=== PATIENT | male | born 1960 | race Caucasian/White ===

== ENCOUNTER 2018-11-02 14:17 | Inpatient (IN) | payer MEDICARE, MEDICAID ==
[~2018-11-02] VITALS: Ht 180.3 cm; Wt 75.0 kg
[2018-11-02 17:06] LABS: BASOPHILS 0.2 % (0-2); EOSINOPHILS 0.1 % (0-7); HEMATOCRIT 50.7 % (42.0-54.0); HEMOGLOBIN 17.9 g/dL (13.5-17.5); IMMATURE GRANULOCYTES 0.3 % (0-5); LYMPHOCYTES 7.6 % (15-50); MCH 32.4 pg (26.0-34.0); MCHC 35.3 g/dL (31.0-37.0); MCV 91.8 fL (80.0-100.0); MEAN PLATELET VOLUME 10.1 fL (7.4-10.4); MONOCYTES 6.1 % (2-11); NEUTROPHILS 85.7 % (40-80); PLATELET COUNT 353 10x3/uL (130-400); RBC 5.52 10x6/uL (4.20-6.10); RDW 13.7 % (11.5-14.5); WBC 19.8 10x3/uL (4.8-10.8)
[2018-11-02 17:26] LABS: ALBUMIN 3.2 g/dL (3.4-5.0); ALKALINE PHOSPHATASE 81 U/L (46-116); ALT (SGPT) 14 U/L (10-68); BILIRUBIN - TOTAL 0.62 mg/dL (0.2-1.3); CALC OSMOLALITY 275 mosm/kg (275-300); CALCIUM 9.1 mg/dL (8.5-10.1); CARBON DIOXIDE 27.3 mmol/L (21.0-32.0); CHLORIDE - SERUM 98 mmol/L (98-107); GLUCOSE 131 mg/dL (74-106); POTASSIUM - SERUM 3.8 mmol/L (3.5-5.1); PROTEIN - SERUM 8.4 g/dL (6.4-8.2); SODIUM 136 mmol/L (136-145); UREA NITROGEN 18 mg/dL (7-18); eGFR NON AFRICAN AMERICAN 81 mL/min (90-120)
[2018-11-02 19:00] VITALS: BP 109/80
[2018-11-02 19:33] LABS: APPEARANCE CLEAR (CLEAR); COLOR YELLOW (YELLOW); GLUCOSE NEGATIVE (NEGATIVE); NITRITE NEGATIVE (NEGATIVE); PROTEIN TRACE mg/dL (NEGATIVE); SPECIFIC GRAVITY 1.015 (1.005-1.020)
[2018-11-02 19:34] LABS: BILIRUBIN NEGATIVE (NEGATIVE); KETONE NEGATIVE (NEGATIVE)
--- NOTE | 2018-11-02 20:43 | NUR ---
PT LAYING IN BED RESTING WITH EYES CLOSED. EASILY AROUSED WITH VERBAL STIMULI. PT REPORTS PAIN IS 8/10. NO DISTRESS NOTED AT THIS TIME. COLOR WNL FOR RACE. RESPIRATIONS ARE EVEN AND UNLABORED. WILL CONTINUE TO MONITOR PAT.
[2018-11-02 21:06] VITALS: BP 150/73
--- NOTE | 2018-11-03 | NUR ---
ARRIVED ON FLOOR VIA STRETCHER. SELF BED TO BED TRANSFER. ORIENTED TO ROOM AND CALL LIGHT. FAMILY AT BEDSIDE. INC TO RIGHT GROIN CDI. INITIATED ON CONT VITALS. IV TO LEFT HAND INFUSING NS @ 125 PER ORDER. NO NEEDS VOICED AT THIS TIME.
[2018-11-03 00:04] VITALS: BP 116/67
[2018-11-03 00:15] VITALS: Ht 180.3 cm; Wt 75.0 kg
[2018-11-03 04:00] VITALS: BP 125/70
--- NOTE | 2018-11-03 07:58 | NUR ---
PT ALERT X 4. BREATH SOUNDS CLEAR BILAT, 2L O2 PER NC. BOWEL SOUNDS HYPOACTIVE TO ALL MELENDEZ. IV TO LEFT HAND, PATENT, DRESSING CLEAN DRY AND INTACT. DRESSING TO RIGHT GROIN AREA, DRESSING CLEAN DRY AND INTACT. FAMILY AT BEDSIDE. BED LOW, CALL LIGHT IN REACH, NO OTHER NEEDS AT THIS TIME.
[2018-11-03 08:42] VITALS: BP 121/75
[2018-11-03 08:46] LABS: BASOPHILS 0.1 % (0-2); EOSINOPHILS 0.1 % (0-7); HEMATOCRIT 48.8 % (42.0-54.0); IMMATURE GRANULOCYTES 0.3 % (0-5); LYMPHOCYTES 5.6 % (15-50); MCH 32.5 pg (26.0-34.0); MCHC 34.8 g/dL (31.0-37.0); MCV 93.3 fL (80.0-100.0); MEAN PLATELET VOLUME 10.2 fL (7.4-10.4); MONOCYTES 6.5 % (2-11); NEUTROPHILS 87.4 % (40-80); PLATELET COUNT 290 10x3/uL (130-400); RBC 5.23 10x6/uL (4.20-6.10); RDW 14.1 % (11.5-14.5)
[2018-11-03 08:51] LABS: WBC 14.2 10x3/uL (4.8-10.8)
[2018-11-03 08:57] LABS: ANION GAP 16.4 mmol/L (8-16); CALCIUM 7.9 mg/dL (8.5-10.1); CARBON DIOXIDE 23.6 mmol/L (21.0-32.0); CREATININE - SERUM 1.1 mg/dL (0.6-1.3)
[2018-11-03] MEDS ORDERED: HYDROCODON-ACE1 EA10 PO (10:56)
[2018-11-03 13:36] VITALS: BP 102/62; BP 177/58
[2018-11-03 17:42] VITALS: BP 128/75
[2018-11-03 21:20] VITALS: BP 127/70
[2018-11-04 02:06] VITALS: BP 119/71
--- NOTE | 2018-11-04 03:52 | NUR ---
RESTING QUITELY IN BED NO APPARENT DISTRESS CALL SABA JARA
[2018-11-04 04:02] LABS: BASOPHILS 0.1 % (0-2); EOSINOPHILS 0 % (0-7); HEMATOCRIT 43.3 % (42.0-54.0); HEMOGLOBIN 14.8 g/dL (13.5-17.5); IMMATURE GRANULOCYTES 0.2 % (0-5); LYMPHOCYTES 8.7 % (15-50); MCH 32.1 pg (26.0-34.0); MCHC 34.2 g/dL (31.0-37.0); MCV 93.9 fL (80.0-100.0); MEAN PLATELET VOLUME 10.1 fL (7.4-10.4); MONOCYTES 8.5 % (2-11); NEUTROPHILS 82.5 % (40-80); PLATELET COUNT 266 10x3/uL (130-400); RBC 4.61 10x6/uL (4.20-6.10); RDW 14.1 % (11.5-14.5); WBC 12.4 10x3/uL (4.8-10.8)
[2018-11-04 04:17] LABS: CALC OSMOLALITY 270 mosm/kg (275-300); CALCIUM 7.9 mg/dL (8.5-10.1); CHLORIDE - SERUM 100 mmol/L (98-107); GLUCOSE 100 mg/dL (74-106); POTASSIUM - SERUM 3.8 mmol/L (3.5-5.1); SODIUM 135 mmol/L (136-145); UREA NITROGEN 15 mg/dL (7-18); eGFR NON AFRICAN AMERICAN 81 mL/min (90-120)
[2018-11-04 06:00] VITALS: BP 130/72
--- NOTE | 2018-11-04 07:25 | NUR ---
C/O NAUSEA. REQUESTED AND GIVEN 4MG ZOFRAN SLOW IVP. WILL MONITOR.
--- NOTE | 2018-11-04 08:14 | NUR ---
AWAKE AND ALERT. RESTING QUIETLY AT THIS TIME. NO C/O VOICED. LUNGS ARE CLEAR BILATERALLY, NO COUGH NOTED. SKIN IS INTACT WITHOUT REDNESS EXCEPT INCISION TO RIGHT GROIN WHICH HAS A DRY INTACT DRESSING IN PLACE. IV TO LEFT HAND IS PATENT WITHOUT REDNESS AT INSERTION SITE. DENIES NEEDS.
[2018-11-04 08:45] VITALS: BP 132/71
--- NOTE | 2018-11-04 10:00 | NUR ---
OFF UNIT VIA FOR EXRAY.
--- NOTE | 2018-11-04 11:45 | NUR ---
RETURNED TO ROOM. WILL RESPOND TO QUESTIONS BUT NOT VERY TALKATIVE. DENIES NEEDS.
[2018-11-04 13:28] VITALS: BP 121/79
--- NOTE | 2018-11-04 13:40 | NUR ---
GIVEN 4MG ZOFRAN SLOW IVP FOR C/O NAUSEA.. IV TO LEFT HAND NOTED TO BE LEAKING. RESITED TO LEFT FOREARM AFTER ONE ATTEMPT WITH 20G. ZOFRAN GIVEN AGAIN NO RELIEF FROM NAUSEA. WILL CONTINUE TO MONITOR.
--- NOTE | 2018-11-04 14:50 | NUR ---
PATIENT HAD OVER 700CC GREENISH EMESIS WITH FEW PARTICULATES. DR. SOMMER NOTIFIED OF SAME. NEW ORDERS FOR PHENERGAN RECEIVED. WILL MONITOR.
[2018-11-04 16:00] VITALS: BP 123/75
--- NOTE | 2018-11-04 17:00 | NUR ---
CL SUPPER TRAY SERVED IN ROOM. ATE ONLY A FEW BITES OF JELLO. WILL MONITOR.
--- NOTE | 2018-11-04 19:30 | NUR ---
NO C/O PAIN AT THIS TIME. REPORTS SOME NAUSEA. WILL CONTINUE TO MONITOR.
--- NOTE | 2018-11-04 19:45 | NUR ---
EYES CLOSED RESP EVEN AND UNLABORED. NO DISTRESS NOTED. IV INFUSING TO LFA WITHOUT REDNESS OR EDDEMA NOTED. CL IN REACH
[2018-11-04 21:24] VITALS: BP 131/71
[2018-11-05 01:38] VITALS: BP 124/80
--- NOTE | 2018-11-05 01:44 | NUR ---
EYES CLOSED RESPIRATIONS WITH EASE AND UNLABORED.
[2018-11-05 05:03] VITALS: BP 148/74
[2018-11-05 06:41] LABS: CALC OSMOLALITY 272 mosm/kg (275-300); CARBON DIOXIDE 26.6 mmol/L (21.0-32.0); CHLORIDE - SERUM 102 mmol/L (98-107); CREATININE - SERUM 0.9 mg/dL (0.6-1.3); GLUCOSE 102 mg/dL (74-106); POTASSIUM - SERUM 3.6 mmol/L (3.5-5.1); SODIUM 136 mmol/L (136-145); UREA NITROGEN 14 mg/dL (7-18); eGFR NON AFRICAN AMERICAN > 90 mL/min (90-120)
[2018-11-05 06:45] LABS: BASOPHILS 0.1 % (0-2); EOSINOPHILS 0.3 % (0-7); HEMATOCRIT 42.6 % (42.0-54.0); HEMOGLOBIN 14.4 g/dL (13.5-17.5); IMMATURE GRANULOCYTES 0.3 % (0-5); LYMPHOCYTES 12.8 % (15-50); MCH 31.9 pg (26.0-34.0); MCHC 33.8 g/dL (31.0-37.0); MCV 94.2 fL (80.0-100.0); MEAN PLATELET VOLUME 10.5 fL (7.4-10.4); MONOCYTES 12.3 % (2-11); NEUTROPHILS 74.2 % (40-80); PLATELET COUNT 275 10x3/uL (130-400); RBC 4.52 10x6/uL (4.20-6.10); RDW 13.6 % (11.5-14.5)
--- NOTE | 2018-11-05 08:03 | NUR ---
PT RESTING EYES CLOSED, NO SIGNS OF DISTRESS NOTED, WILL CONTINUE TO MONITOR CL IN REACH
[2018-11-05 08:51] VITALS: BP 179/66
[2018-11-05 13:39] VITALS: BP 125/70
[2018-11-05 15:45] VITALS: BP 118/79
--- NOTE | 2018-11-05 18:29 | NUR ---
MECHANICAL MANUFACTURING TECHNICIAN COMPLETE. NO SIGNS OF DISTRESS NOTED. DENIES NEEDS AT THIS TIME. CL IN REACH
--- NOTE | 2018-11-05 21:00 | NUR ---
LYING QUIELTY. NO DISTRESS NOTED.RESP UNLABORED.IV INFUSING TO LFA WITHOUT REDNESS OR EDEMA NOTED. CL IN REACH
[2018-11-05 21:02] VITALS: BP 124/74
[2018-11-06 04:48] LABS: BASOPHILS 0.1 % (0-2); HEMATOCRIT 42.5 % (42.0-54.0); HEMOGLOBIN 14.5 g/dL (13.5-17.5); IMMATURE GRANULOCYTES 0.2 % (0-5); LYMPHOCYTES 21.2 % (15-50); MCH 31.7 pg (26.0-34.0); MCHC 34.1 g/dL (31.0-37.0); MEAN PLATELET VOLUME 10.3 fL (7.4-10.4); MONOCYTES 11.8 % (2-11); NEUTROPHILS 65.7 % (40-80); PLATELET COUNT 256 10x3/uL (130-400); RBC 4.57 10x6/uL (4.20-6.10); RDW 13.4 % (11.5-14.5); WBC 8.3 10x3/uL (4.8-10.8)
--- NOTE | 2018-11-06 05:00 | NUR ---
EYES CLOSED RESPIRATIONS WITH EASE AND UNLABORED.
[2018-11-06 05:10] LABS: CALC OSMOLALITY 274 mosm/kg (275-300); CALCIUM 7.6 mg/dL (8.5-10.1); CARBON DIOXIDE 25.9 mmol/L (21.0-32.0); CHLORIDE - SERUM 103 mmol/L (98-107); CREATININE - SERUM 0.7 mg/dL (0.6-1.3); GLUCOSE 94 mg/dL (74-106); POTASSIUM - SERUM 3.1 mmol/L (3.5-5.1); SODIUM 138 mmol/L (136-145); eGFR NON AFRICAN AMERICAN > 90 mL/min (90-120)
[2018-11-06 05:19] LABS: UREA NITROGEN 10 mg/dL (7-18)
[2018-11-06 06:05] VITALS: BP 133/72
[2018-11-06 08:17] VITALS: BP 131/71
[2018-11-06] MEDS ORDERED: NORCO-10 PO (08:39)
--- NOTE | 2018-11-06 08:39 | OP ---
PATIENT NAME: SHRUTHI HERNÁNDEZ MEDICAL RECORD: [id number] :60 LOCATION:D.MS [id number] ADMISSION DATE:11/04/18 SURGEON: HARJINDER SOMMER MD DATE OF OPERATION: 11/02/2018 PREOPERATIVE DIAGNOSES: 1. Small-bowel obstruction. 2. Incarcerated right inguinal hernia. 3. Tobacco dependence syndrome. 4. Alcohol dependence. POSTOPERATIVE DIAGNOSES: 1. Small-bowel obstruction. 2. Incarcerated right femoral hernia. 3. Tobacco dependence syndrome. 4. Alcohol dependence. PROCEDURE: Right inguinal hernia repair with large PHS mesh. SURGEON: Harjinder Sommer MD REPORT OF PROCEDURE: The patient's right groin was prepped and draped in sterile fashion. An oblique incision was made above the inguinal ligament. Electrocautery was used to dissect through the subcutaneous tissues to the external oblique fascia. The patient's hernia sac was noted to be below the inguinal line consistent with a femoral hernia. It appeared more fat-containing, but it was very difficult to make out the contents of the hernia sac. There was no evidence of any necrotic tissue visible. The external oblique fascia was closed with an external ring using electrocautery. The ilioinguinal nerves were found and high ligated. The spermatic cord was elevated and a Eloisa was placed around it. An opening was made in the inguinal floor and I was able to dissect out the preperitoneal space of Retzius. I could feel the contents extending into the patient's right femoral foramina. I was not able to reduce the tissue within it, so I had to open up the inguinal ligament and at this point, I was able to easily reduce the hernia contents back into the abdominal cavity. The inguinal ligament was then reapproximated with interrupted followed by running 0 Vicryl. A large PHS mesh was then inserted into the preperitoneal space of Retzius. Two sutures were used to sew the inferior aspect of the mesh to the superior aspect of Dimitry's ligament. The superior portion of the mesh was then sutured down on all 4 sides using multiple interrupted 0 Vicryls. The mesh appeared to rest in good position. The wound was then irrigated out with normal saline and care was taken to assure there was no sign of any bleeding. Inspection of the spermatic cord showed there was a cord lipoma, which was high ligated with a 3-0 silk. The external oblique fascia was then closed with running 2-0 Vicryl, Isabel's was closed with interrupted 3-0 Vicryl and the skin was closed with running subcutaneous 5-0 Monocryl. A 10 mL of 0.5% Marcaine with epinephrine was infused into the surrounding tissues and the wounds were dressed appropriately. COMPLICATIONS: None. CONDITION: Stable. ANESTHESIA: General endotracheal and local. OPERATIVE REPORT [id number] SHRUTHI HERNÁNDEZ BLOOD LOSS: Minimal. TRANSINT:[id number] Voice Confirmation ID: [id number] DOCUMENT ID: [id number] HARJINDER SOMMER MD at 0839 CC: [id number] DICTATION DATE: 11/02/18 2335 DESIGN COORDINATOR: 11/03/18 0944 ADM IN [place] [id number] [place] [address]
--- NOTE | 2018-11-06 09:12 | MORECARE ---
CASE MANAGEMENT DISCHARGE SUMMARY PATIENT: SHRUTHI HERNÁNDEZ UNIT: [id number] ADM DATE: 11/04/18 AGE: 58 : 60 SEX: M ROOM/BED: D.2204 AUTHOR: NADJA NIEVES PHYSICIAN: REFERRING PHYSICIAN: EDDIE SOMMER MD DATE OF SERVICE: 11/06/18 Discharge Plan Patient Name: SHRUTHI HERNÁNDEZ Facility: [facility]:[place] : 1960 Planned Disposition: Home Anticipated Discharge Date: Discharge Date: Expected LOS: Initial Reviewer: [email or web address] Initial Review Date: 11/03/2018 Generated: 11/06/18 10:12 am Comments DCP- Discharge Planning Updated by [email or web address]: Sarah Waddell on 11/06/18 8:[address] Patient Name: SHRUTHI HERNÁNDEZ Admission Status: ER Accout number: [id number] Admission Date: 11-04-2018 : 1960 Admission Diagnosis:UNIL INGUINAL HERNIA, W/O OBST OR GANGR, NOT SPCF RE Attending: EDDIE SOMMER Current LOS: 2 Anticipated DC Date: Planned Disposition: Home Primary Insurance: [employer] ADV Discharge Planning Comments: CM met with patient to complete initial dc planning assessment. CM educated patient on the CM role and verbal consent given by patient to complete assessment. Patient lives at home with his daughters, where he states he is independent with his care at home. At discharge patient plans to return there and feels this is a safe discharge. CM discussed availability of home health, rehab services, and medical equipment. Patient denied known discharge needs at this time. He stated his sister or daughter will be the one to drive him home. CM will continue to follow and will assist as needed with dc plans/needs. Wrapper Dipper: Sarah Waddell Coverage Notice Reviewer: [id number] - Roma Davila Notice Issued Date-Time: 11/03/2018 13:25 Notice Type: Medicare Outpatient Observation Notice Notice Delivered To: Patient Relationship to Patient: Green Building Energy Engineer Name: Delivery Method: HAND - Hand Delivered Karissa Days: Prior Verbal Notification: Recipient Understood Notice: Yes Recipient Signature: Yes Med Rec Note Co-signed by Attending: Coverage Notice Comment: Patient Name: SHRUTHI HERNÁNDEZ Page [phone] at 0912 All edits/amendments must be made on the electronic document DICTATION DATE: 11/06/18911 STAFF COMBAT INFORMATION CENTER OFFICER: BRAXTON 11/06/18911 RPT#: [id number] DC DATE: STATUS: ADM IN [address] [place] [address] END OF REPORT
--- NOTE | 2018-11-06 09:52 | NUR ---
PT ALERT X 4. BREATH SOUNDS CLEAR BILAT. IV TO LEFT FOREARM DC'D, TIP INTACT. INCISION TO RIGHT GROIN, STERI-STRIPS IN PLACE. PT REPORTING NO PAIN AT THIS TIME. DISCHARGE PAPERWORK SIGNED, ALL QUESTIONS ANSWERED. WAITING ON FAMILY MEMBER TO COME FOR PICKUP.
--- NOTE | 2018-11-06 17:17 | MORECARE ---
CASE MANAGEMENT DISCHARGE SUMMARY PATIENT: SHRUTHI HERNÁNDEZ UNIT: [id number] ADM DATE: 11/04/18 AGE: 58 : 60 SEX: M ROOM/BED: D.2204 AUTHOR: NADJA NIEVES PHYSICIAN: REFERRING PHYSICIAN: EDDIE SOMMER MD DATE OF SERVICE: 11/06/18 Discharge Plan Patient Name: SHRUTHI HERNÁNDEZ Facility: [facility]:[place] : 1960 Planned Disposition: Home Anticipated Discharge Date: Discharge Date: 11/06/2018 Expected LOS: 0 Initial Reviewer: [email or web address] Initial Review Date: 11/03/2018 Generated: 11/06/18 6:17 pm Comments DCP- Discharge Planning Updated by [email or web address]: Sarah Waddell on 11/06/18 8:[address] Patient Name: SHRUTHI HERNÁNDEZ Admission Status: ER Accout number: [id number] Admission Date: 11-04-2018 : 1960 Admission Diagnosis:UNIL INGUINAL HERNIA, W/O OBST OR GANGR, NOT SPCF RE Attending: EDDIE SOMMER Current LOS: 2 Anticipated DC Date: Planned Disposition: Home Primary Insurance: [employer]ICARE ADV Discharge Planning Comments: CM met with patient to complete initial dc planning assessment. CM educated patient on the CM role and verbal consent given by patient to complete assessment. Patient lives at home with his daughters, where he states he is independent with his care at home. At discharge patient plans to return there and feels this is a safe discharge. CM discussed availability of home health, rehab services, and medical equipment. Patient denied known discharge needs at this time. He stated his sister or daughter will be the one to drive him home. CM will continue to follow and will assist as needed with dc plans/needs. Healthcare Administration Intern: Sarah Waddell Coverage Notice Reviewer: [id number] - Roma Davila Notice Issued Date-Time: 11/03/2018 13:25 Notice Type: Medicare Outpatient Observation Notice Notice Delivered To: Patient Relationship to Patient: Food Aide Name: Delivery Method: HAND - Hand Delivered Karissa Days: Prior Verbal Notification: Recipient Understood Notice: Yes Recipient Signature: Yes Med Rec Note Co-signed by Attending: Coverage Notice Comment: Last DP export: 11/06/18 8:12 a Patient Name: SHRUTHI HERNÁNDEZ Page [phone] at 1717 All edits/amendments must be made on the electronic document DICTATION DATE: 11/06/181716 REDUCTION FURNACE OPERATOR: BRAXTON 11/06/181716 RPT#: [id number] DC DATE:11/06/18 STATUS: DIS IN [facility] [address] [place] [address] END OF REPORT
== END 2018-11-06 11:13 | disposition home or self-care (01) | DRG 355 ==
LOC: D.ER 14:17 → D.MS 21:26 → OBSVTIME 21:26 → D.MS 11-04 15:45
PROVIDERS: Family Medicine; Internal Medicine Nephrology; ADMIT Surgery
PROC: 0WUF0JZ Supplement Abdominal Wall with Synthetic Substitute, Open Approach (ICD-10-PCS; principal; 2018-11-02 22:00)
DX: K43.0 Incisional hernia with obstruction, without gangrene (principal); F10.20 Alcohol dependence, uncomplicated; F17.200 Nicotine dependence, unspecified, uncomplicated

== ENCOUNTER → 2019-03-11 18:39 | Outpatient (CLI) | payer MEDICARE ==
[2018-11-03 00:15] VITALS: BMI 23.0
[~2019-03-11 18:39] MED LIST: HYDROCODON-ACE1 EA10 PO; NORCO-10 PO
[2019-03-13 12:12] LABS: ANA REFLEX - ANTICHROMATIN ABS <0.2 AI (0.0-0.9); ANA REFLEX - CENTROMERE B ABS <0.2 AI (0.0-0.9); ANA REFLEX - DBL STRANDED DNA <1 IU/mL (0-9); ANA REFLEX - DIRECT Positive (Negative); ANA REFLEX - JO-1 AB <0.2 AI (0.0-0.9); ANA REFLEX - RNP ANTIBODIES <0.2 AI (0.0-0.9); ANA REFLEX - SCL-70 <0.2 AI (0.0-0.9); ANA REFLEX - SJOGRENS AB SSA <0.2 AI (0.0-0.9); ANA REFLEX - SJOGRENS AB SSB <0.2 AI (0.0-0.9); ANA REFLEX - SMITH AB <0.2 AI (0.0-0.9)
[2019-03-14 12:12] LABS: ANGIOTENSIN CONVERTING ENZYME 38 U/L (14-82)
== END | disposition home or self-care (01) ==
LOC: D.LABREF 18:39
PROVIDERS: ATTEND Internal Medicine Pulmonary Disease
DX: J84.10 Pulmonary fibrosis, unspecified (principal)

== ENCOUNTER → 2019-04-03 09:46 | Outpatient (CLI) | payer MEDICARE, MEDICAID ==
[2018-11-03 00:15] VITALS: BMI 23.0
--- NOTE | ~2019-04-03 | ST ---
PATIENT:SHRUTHI HERNÁNDEZ MEDICAL RECORD: [id number] SEX: M LOCATION:[facility] ORDER #: ADMISSION DATE: 04/03/19 AGE OF PATIENT: 59 REFERRING PHYSICIAN: INTERPRETING PHYSICIAN: RUFINO ROUSE MD DATE OF SERVICE: 04/03/2019 INDICATION: Angina, shortness of breath, and COPD. He was exercised on standard Lexiscan protocol with 33 mCi of sestamibi injected at peak stress, 10 mCi used previously for rest images. FINDINGS: Gated SPECT reveals preserved ejection fraction at 53% with good wall motioning and thickening and brightening throughout all segments. SPECT imaging Cardiolite was used as myocardial perfusion agent. There is reversibility anteriorly as well as inferiorly. There is mild reversibility that includes the basal, mid, apical anterior segments. There is moderate reversibility including the basal, mid, apical, inferior segments. The amount of myocardium involved between both defects is large. OVERALL IMPRESSION: This is an intermediate to high risk nuclear stress test with large amount of myocardium at risk for ischemia anteriorly as well as inferiorly suggestive of multivessel coronary artery disease. We will proceed with coronary angiography as followup study. TRANSINT:[id number] Voice Confirmation ID: [id number] DOCUMENT ID: [id number] RUFINO ROUSE MD CC: STONEY NUNEZ MD [id number] DICTATION DATE: 04/04/19 1250 SUPERVISORY AIR INTERCEPT CONTROLLER: 04/04/19 2319 DEP CLI 04/03/[address] [address]
--- NOTE | 2019-04-04 16:51 | EC ---
PATIENT:SHRUTHI HERNÁNDEZ DATE OF SERVICE: 04/03/19 SEX: M MEDICAL RECORD: [id number] DATE OF : 60 LOCATION:[facility] AGE OF PATIENT: 59 ADMISSION DATE: 04/03/19 REFERRING PHYSICIAN: INTERPRETING PHYSICIAN: RUFINO DUBOSE MD ECHOCARDIOGRAM REPORT ECHO CHARGES 4 ECHO COMPLETE Date: 04/03/19 CLINICAL DIAGNOSIS: DYSPNEA ECHOCARDIOGRAPHIC MEASUREMENTS (adult normal given) AC root (d.<3.7cm) 3.5 cm LV Septum d (<1.2 cm> 1.1 cm Valve Excursion 1.7 cm LV Septum (systole) 1.3 cm Left Atria (s.<4.0cm> 2.9 cm LVPW d(<1.2cm) 1.3 cm RV (d.<2.3cm) 3.9 cm LVPW (sytole) 1.5 cm LV diastole(<5.6CM) 4.5 cm MV E-F(>70mm/sec) cm LV systole 3.2 cm LVOT Diameter 2.0 cm MV exc.(>10mm) 1.5 cm Est.ejection fraction (50-75%) % DOPPLER: LVIT cm/sec A 72.0 cm/sec E 59.0 cm/sec LA cm/sec RVSP 24 mmHg LVOT 88 cm/sec AOP1/2T m/s Asc. Ao 114 cm/sec RVOT 48 cm/sec RA cm/sec PA 108 cm/sec AV Gradient Peak 5.19 mmHg AV Mean 2.96 mmHg AV Area 2.1 cm MV Gradient Peak 2.90 mmHg MV Mean 1.20 mmHg MV Area cm COMMENTS: Light Armored Reconnaissance Officer: Dacia DIANA Press Operator Helper: 1 Dr. Dubose TAPE# PACS Pericardial Effusion N DATE OF SERVICE: ECHOCARDIOGRAM FINDINGS: 1. Left ventricular chamber size is within normal limits. Left ventricular systolic function is normal. Overall ejection fraction estimated at 50%. 2. Left atrium is within normal limits. Right atrium and right ventricle chamber sizes are mildly dilated. 3. Valvular structures have normal structure and motion. ECHOCARDIOGRAM REPORT [id number] SHRUTHI HERNÁNDEZ 4. Doppler interrogation reveals no significant valvular insufficiency or stenosis and pulmonary systolic pressure is normal estimated at 24 mmHg. 5. No evidence of pericardial effusion or left ventricular thrombus. TRANSINT:[id number] Voice Confirmation ID: [id number] DOCUMENT ID: [id number] RUFINO DUBOSE MD at 1651 CC: [id number] DICTATION DATE: 04/04/19 1046 OPTOMETRIC COORDINATOR: 04/04/19 1104 DEP CLI 04/03/19 [place] [id number] [place] [id number]
== END | disposition home or self-care (01) ==
LOC: D.HCCARDIO 09:46
PROVIDERS: ATTEND Internal Medicine Interventional Cardiology
DX: R06.02 Shortness of breath (principal)

== ENCOUNTER 2019-04-24 09:59 | Outpatient (CLI) | payer MEDICARE, MEDICAID ==
[~2019-04-24] VITALS: Ht 180.3 cm; Wt 72.7 kg
--- NOTE | ~2019-04-24 | HEMODYNAMI ---
PATIENT:SHRUTHI HERNÁNDEZ MEDICAL RECORD: [id number] : 60 LOCATION:[facility] ADMISSION DATE: 04/24/19 Generatedon:04/24/201912:19 Patient name: SHRUTHI HERNÁNDEZ Patient #: [id number] SSN: [id number] : 1960 Date of study: 04/24/2019 Page: Of Hemodynamic Procedure Report Patient Data Patient Demographics Procedure consent was obtained First Name: SHRUTHI Gender: Male Last Name: EDGAR : 1960 Patient #: [id number] Age: 59 year(s) Race: SSN: [id number] Additional ID: [id number] Contact details Address: [address] [place], [place] [address] Zip code: [address] Admission Admission Data Admission Date: 04/24/2019 Admission Time: 9:59 Arrival Date: 04/24/2019 Arrival Time: 11:30 Admit Source: Other Insurance Payor: Medicare Height (in.): 71 BSA: 1.88 (m2) Height (cm.): 180.34 BMI: 21.2 (kg/m2) Weight (lbs.): 152 Weight (kg.): 68.95 Lab Results Lab Result Date: 04/24/2019 Lab Result Time: 0:00 Biochemistry Name Units Result Min Max BUN mg/dl 10 --(-*--)-- 7 18 Creatinine mg/dl 0.8 --(-*--)-- 0.6 1.3 CBC Name Units Result Min Max Hemoglobin g/dl 16.6 --(---*)-- 13.5 17.5 Procedure Procedure Types Cath Procedure Diagnostic Procedure [facility] w/Coronaries Sedation Charges Moderate Sedation up to 30 minutes PCI Procedure Coronary Stent Coronary Stent Initial Procedure Description Procedure Date Procedure Date: 04/24/2019 Procedure Start Time: 12:02 Procedure End Time: 12:15 Procedure Staff Name Function Chong Dubose MD Performing Physician Ashia Salgado RT Monitor Becka Osuna RT Scrub Montrell Genao RN Nurse Indication Angina Procedure Data Cath Procedure Fluoroscopy Diagnostic fluoroscopy Total fluoroscopy Time: 2.8 time: 2.8 min min Diagnostic fluoroscopy Total fluoroscopy dose: 654 dose: 654 mGy mGy Contrast Material Contrast Material Type Amount (ml) Isovue 300 64 Entry Location Entry Primary Successful Side Size Upsize Upsize Entry Closure Padilla ccessful Closure Location (Fr) 1 (Fr) 2 (Fr) Remarks Device Remarks Radial Right 6 Fr Mechanical artery Short Compression Estimated blood loss: 5 ml Diagnostic catheters Device Type Used For End Catheter Placement DIAGNOSTIC Reese 110cm 5 Multi-vessel Fr catheter ([id number]) Angiography Procedure Complications No complications Procedure Medications Medication Administration Route Dosage Oxygen etCO2 Nasal cannula 2 l/min Heparin Flush Bag added to field 2 bags (1000units/500ml NS) 0.9% NaCl I.V. 100 ml/hr Lidocaine 2% added to field 20 Radial Cocktail added to field 1 syringe (Verapamil 2mg/Nitro 400mcg/Heparin 1500units) Fentanyl I.V. 50 mcg Versed I.V. 1 mg Radial Cocktail I.A. 1 syringe (Verapamil 2mg/Nitro 400mcg/Heparin 1500units) Heparin Bolus I.V. 4000 units Integrilin (Bolus I.V. 6.8 ml 2mg/ml) Integrilin (Bolus I.V. 3.2 ml 2mg/ml) Fentanyl I.V. 50 mcg Plavix P.O. 600 mg Hemodynamics Rest BSA: 1.88 (m2) HGB: 16.6 (g/dl) O2 Consumption: Estimated: 228.34 (ml/min) O2 Co nsumption indexed: Estimated:121.46 (ml/min/m) Heart Rate: 80 (bpm) Pressure Samples Time Site Value (mmHg) Purpose Heart Use Rate(bpm) 12:04 LV 67/10,9 Snapshot 98 Snapshots Pre Cath Intra NCS Post Cath Vital Signs Time Heart Resp SPO2 etCO2 NIBP Rhythm Pain Sedation Rate (ipm) (%) (mmHg) (mmHg) Status Level (bpm) 11:46:53 87 16 99 27.7 119/77(94) NSR 0 (11) 10(A) , No pain 11:50:34 80 17 99 21.7 120/80(99) NSR 0 (11) 10(A) , No pain 11:54:17 84 17 98 16.5 112/76(92) NSR 0 (11) 9(A) , No pain 11:58:19 81 16 97 4.4 121/72(87) NSR 0 (11) 9(A) , No pain 12:02:02 79 16 97 1.5 113/74(93) NSR 0 (11) 9(A) , No pain 12:05:48 77 16 96 27.7 100/63(79) NSR 0 (11) 9(A) , No pain 12:09:33 76 17 95 17.9 102/60(74) NSR 0 (11) 9(A) , No pain 12:13:36 74 16 97 12.7 100/64(77) NSR 0 (11) 9(A) , No pain 12:16:59 73 17 96 13.4 107/62(76) NSR 0 (11) 10(A) , No pain Medications Time Medication Route Dose Verified Delivered Reason Not es Effectiveness by by 11:51:31 Oxygen etCO2 2 l/min Chong Stock Per physician Nasal Gracy Genao RN cannula 11:51:40 Heparin Flush added 2 bags Chong Stock used for Bag to Gracy Genao RN procedure (1000units/500ml field NS) 11:51:48 0.9% NaCl I.V. 100 Chong Stock Per physician ml/hr Gracy Genao RN 11:51:57 Lidocaine 2% added 20ml Chong Stock for local to vial Gracy Genao RN anesthetic field 11:52:07 Radial Cocktail added 1 Chong Stock used for (Verapamil to syringe Gracy Genao RN procedure 2mg/Nitro field 400mcg/Heparin 1500units) 11:53:55 Versed I.V. 1 mg Chong Stock for sedation Gracy Genao RN 11:53:55 Fentanyl I.V. 50 mcg Chong Stock for sedation Gracy Genao RN 12:04:42 Radial Cocktail I.A. 1 Chong Stock for (Verapamil syringe Gracy Genao RN vasodilation 2mg/Nitro 400mcg/Heparin 1500units) 12:08:04 Heparin Bolus I.V. 4000 Chong Stock for units Gracy Genao RN anticoagulation 12:08:16 Integrilin I.V. 6.8 ml Chong Stock for (Bolus 2mg/ml) Gracy Genao RN anticoagulation 12:08:22 Integrilin I.V. 3.2 ml Chong Stock for (Bolus 2mg/ml) Gracy Genao RN anticoagulation 12:10:15 Fentanyl I.V. 50 mcg Chong Stock for sedation Gracy Genao RN 12:14:05 Plavix P.O. 600 mg Chong Stock for Gracy Genao RN antiplatelet therapy Procedure Log Time Note 11:37:40 Diagnostic Cath Status : Elective 11:38:04 Indication : Angina 11:38:11 Montrell Genao RN sent for patient. Start room use. 11:38:13 Time tracking: Regular hours (M-F 7:00 - 5:00) 11:38:18 Plan of Care:Hemodynamics will remain stable., Cardiac rhythm will remain stable., Comfort level will be maintained., Respiratory function will remain adequate., Patient/ family verbilizes understanding of procedure., Procedure tolerated without complication., Recovers from procedure without complications.. 11:38:32 ACC Patient presents with Non-STEMI CCS Anginal Class 3--Marked limitation of physical activity, angina occurs with ordinary activity.. 11:38:40 ACCPatient has been prescribed/administered the following anti-anginal medication within the last 2 weeks: None 11:38:46 Procedure Status Elective Heart Cath (OP). 11:38:58 Signed procedure consent form obtained from patient. 11:39:11 Patient received from Pre/Post Procedure Room to [facility] 2 Alert and oriented. Tansferred to table in Supine position. 11:39:13 Warm blankets applied, and emmanuel hugger turned on for patient comfort. 11:39:14 Correct patient and procedure confirmed by team. 11:39:14 ECG and BP/O2 sat monitors applied to patient. 11:40:39 Admit Source: Other 11:40:41 Arrival Date: 04/24/2019 11:30:00 AM 11:40:51 Insurance Payor : Medicare 11:41:05 Patient Height : 71 inches 11:41:09 Patient Weight : 152 lbs 11:46:20 Vital chart was started 11:47:35 Baseline sample Acquired. 11:47:38 Rhythm: sinus rhythm 11:47:40 Full Disclosure recording started 11:47:43 H&P Date Dictated: 04/24/2019 Within 30 days and on chart., H&P Addendum completed by physician on day of procedure. (MUST COMPLETE FOR ALL OUTPATIENTS). 11:47:44 Pre-procedure instructions explained to patient. 11:47:45 Pre-op teaching completed and patient verbalized understanding. 11:47:46 Family in waiting room. 11:47:47 Patient NPO since Midnight. 11:47:49 Is the patient allergic to Iodine/contrast media? No. 11:47:51 Was the patient premedicated? No 11:47:52 Is patient on blood thinner?No 11:47:53 Patient diabetic? No. 11:47:55 Previous problem with sedation/anesthesia? No ? 11:47:57 Snore? No 11:47:58 Sleep apnea? No 11:47:58 Deviated septum? No 11:47:59 Opens mouth fully? Yes 11:48:00 Sticks out tongue? Yes 11:48:03 Airway obstruction? Yes copd 11:48:06 Dentures? No ? 11:48:09 Pre procedure: right dorsailis pedis pulse 2+ Normal; easily identifiable; not easily obliterated 11:48:11 Pre procedure: left dorsailis pedis pulse 2+ Normal; easily identifiable; not easily obliterated 11:48:13 Patient pain scale 0/10 ?. 11:48:18 IV patent on arrival in left forearm with 0.9% NaCl at KVO. 11:48:21 Lab results completed and on chart. 11:48:36 Lab Result : BUN 10 mg/dl 11:48:36 Lab Result : Creatinine 0.8 mg/dl 11:48:36 Lab Result : Hemoglobin 16.6 g/dl 11:48:42 Right Radial & Right Groin area was prepped with chlora-prep and draped in sterile fashion 11:48:43 Alarms reviewed by R. N. 11:48:43 Sharps counted by scrub and verified by R.N. 11:48:44 Physician arrived 11:48:45 --------ALL STOP TIME OUT------ 11:48:46 Final Timeout: patient, procedure, and site verified with staff and physician. All members of the team are in agreement. 11:48:48 Right Radial & Right Groin site verified by team. 11:48:51 Fire Safety Assessment: A--An alcohol-based skin anteseptic being used preoperatively., C--Open oxygen or nitrous oxide is being used., D--An ESU, laser, or fiber-optic light is being used. 11:48:54 Physical assessment completed. ASA score P 2 - A patient with mild systemic disease as per Chong Dubose MD. 11:49:02 1) 90+ Normal kidney functon but urine findings or structural abnormalities or genetic trait point to kidney disease. 11:49:21 Maximum allowable contrast dose (3.7 X eGFR X 0.75)249 ml. 11:49:24 Sedation plan: IV Moderate Sedation Medication:Versed, Fentanyl 11:49:28 Use device set Radial Dx or PCI 11:49:29 ACIST Syringe (91068) opened to sterile field. 11:49:30 Medline Cath Pack ([id number]) opened to sterile field. 11:49:30 Bag Decanter (2002) opened to sterile field. 11:49:30 ACIST Hand Control (11075) opened to sterile field. 11:49:31 ACIST Manifold (85749) opened to sterile field. 11:49:31 Tegaderm 4 x 4 (1626W) opened to sterile field. 11:49:32 MBrace Wrist Support ([id number]) opened to sterile field. 11:49:33 SHEATH 6FR RAIN (1649378) opened to sterile field. 11:49:34 EMERALD Guide Wire (702-974) opened to sterile field. 11:51:31 Oxygen 2 l/min etCO2 Nasal cannula was administered by Montrell Genao RN; Per physician; 11:51:40 Heparin Flush Bag (1000units/500ml NS) 2 bags added to field was administered by Montrell Genao RN; used for procedure; 11:51:48 0.9% NaCl 100 ml/hr I.V. was administered by Montrell Genao RN; Per physician; 11:51:57 Lidocaine 2% 20ml vial added to field was administered by Montrell Genao RN; for local anesthetic; 11:52:07 Radial Cocktail (Verapamil 2mg/Nitro 400mcg/Heparin 1500units) 1 syringe added to field was administered by Montrell Genao RN; used for procedure; 11:53:55 Versed 1 mg I.V. was administered by Montrell Genao RN; for sedation; 11:53:55 Fentanyl 50 mcg I.V. was administered by Montrell Genao RN; for sedation; 12:02:26 Procedure started. 12:02:30 Local anesthetic to right radial artery with Lidocaine 2% by Chong Dubose MD.INITIAL ACCESS ONLY 12:02:47 A 6 Fr Short sheath was inserted into the Right Radial artery 12:03:00 A DIAGNOSTIC Reese 110cm 5 Fr catheter ([id number]) was advanced over the wire and used for Multi-vessel Angiography. 12:04:39 LV hemodynamics recorded. 12:04:40 LV gram done using OLIVERA 12:04:42 Radial Cocktail (Verapamil 2mg/Nitro 400mcg/Heparin 1500units) 1 syringe I.A. was administered by Montrell Genao RN; for vasodilation; 12:04:43 Injector settings: Ml/sec: 5, Volume: 15, 12:04:49 EF : 50 % 12:05:12 RCA angiography performed. 12:05:36 Injector settings: Ml/sec: 3, Volume: 6, 12:05:44 LCA angiography performed. 12:05:46 Injector settings: Ml/sec: 3, Volume: 6, 12:06:09 INFLATOR Merit BasixCompak (PK0442) opened to sterile field. 12:06:10 CHOICE PT Extra Support 182cm wire ([id number]) opened to sterile field. 12:06:10 GUIDE 6FR AR 2.0 SH catheter ([id number]) opened to sterile field. 12:07:13 Catheter removed. 12:07:14 Proceeding to intervention. 12:07:44 ACC Pre-intervention LLOYD Flow is 3. 12:08:04 Heparin Bolus 4000 units I.V. was administered by Montrell Genao RN; for anticoagulation; 12:08:13 Pre PCI Site: Resighini mRCA has 90% stenosis. 12:08:16 Integrilin (Bolus 2mg/ml) 6.8 ml I.V. was administered by Montrell Genao RN; for anticoagulation; 12:08:19 6 Fr ar 2 sh guide catheter was inserted over the wire 12:08:22 Integrilin (Bolus 2mg/ml) 3.2 ml I.V. was administered by Montrell Genao RN; for anticoagulation; 12:08:25 choice pt wire advanced. 12:09:22 Wire advanced across lesion. 12:09:23 ACT drawn and resulted at 356 seconds. (normal therapeutic range 180-240 seconds). 12:10:15 Fentanyl 50 mcg I.V. was administered by Montrell Genao RN; for sedation; 12:10:30 Place stent Inflation Number: 1 A COBRA RX 3.0 X 18 Stent was prepped and advanced across the Mid RCA 90. The stent was deployed at 17 BULMARO for 0:10 (min:sec) 0. 12:11:53 Stent catheter was removed intact over wire. 12:11:53 Wire removed. 12:11:54 Guide catheter removed. 12:12:10 TR BAND Standard ([id number]) opened to sterile field. 12:12:28 Sheath removed intact; hemostasis achieved with Mechanical Compression to the Right Radial artery. 12:12:48 ACC Post-intervention LLOYD Flow is 3. 12:13:02 ACCDominant side:Right 12:13:19 Procedure ended.(Physican Out) 12:13:49 Fluoroscopy time 02.80 minutes. 12:13:52 Flurop Dose total: 654 12:13:52 Fluoroscopy dose: 654 mGy 12:13:59 Dose Area Product 80838 mGy/cm. 12:14:05 Plavix 600 mg P.O. was administered by Montrell Genao RN; for antiplatelet therapy; 12:14:06 Contrast amount:Isovue 300 64ml. 12:14:07 Sharps counted by scrub and verified by R.N. 12:14:10 TR band inflated with 10cc of air. 12:14:12 Insertion/operative site no bleeding no hematoma. 12:14:15 Post right radial artery:stable 12:14:38 Post Procedure Pulses reassessed and unchanged 12:14:40 Post procedure rhythm: unchanged. 12:14:42 Estimated blood loss: 5 ml 12:14:45 Post procedure instruction explained to patient.Patient verbalizes understanding. 12:14:45 Patient needs reinforcement of post procedure teaching. 12:15:01 Procedure type changed to Cath procedure, Diagnostic procedure, LHC, LHC w/Coronaries, Sedation Charges, Moderate Sedation up to 30 minutes, PCI procedure, Coronary Stent, Coronary Stent Initial 12:15:02 Procedure and supply charges have been captured, reviewed, submitted and are correct. 12:15:06 Procedure Complication : No complications 12:15:08 Vital chart was stopped 12:15:09 See physician's report for complete and final results. 12:15:12 Report given to Pre/Post Procedure Room. 12:15:24 Patient transfered to Pre/Post Procedure Room with Stretcher. 12:15:26 Procedure ended. 12:15:26 Full Disclosure recording stopped 12:15:33 ACC-PCI Only Patient was given prescriptions, or instructed by Chong Dubose MD to start/continue the following medications upon discharge: Plavix 12:15:34 End room use (Document Last) Intervention Summary Intervention Notes Time ActionType Lesion and Equipment Action# Pressure Duration Attributes Used 12:10:30 Place stent Mid RCA COBRA RX 1 17 00:10 3.0 X 18 Stent Device Usage Item Name Manufacture Quantity Catalog Number Hospital Part Current Minimal Lot# / Charge Number Stock Stock Serial# Code ACIST Syringe Acist 1 19787 400187 149606 838362 20 (77982) Medical Systems Inc Medline Cath Medline 1 [id number] 100434 29887 739655 5 Pack ([id number]) Bag Decanter Microtek 1 2002S 749931 81550 165632 5 (2002S) Medical Inc. ACIST Hand Acist 1 60553 767431 824312 190310 5 Control Medical (73271) Systems Inc ACIST Manifold Acist 1 39543 452972 754886 703763 5 (74051) Medical Systems Inc Tegaderm 4 x 4 3M 1 1626W 902249 052347 455876 5 (1626W) MBrace Wrist Advanced 1 140-0250-00 797728 12051 058481 5 Support Vascular (901995787) Dynamics SHEATH 6FR Cardinal 1 0656159 059777 8721986 093362 5 RAIN (3704305) Health EMERALD Guide Cardinal 1 502455 777177 604431 842676 5 Wire (288-382) Health DIAGNOSTIC Terumo 1 00-5921 563121 789759 754293 5 Reese 110cm 5 Fr catheter (673292) INFLATOR Merit Merit 1 FG4845 645542 070255 947110 15 [facility] (EP7037) CHOICE PT [place] 1 [id number] 292605 737608 787229 5 Extra Support Scientific 182cm wire ([id number]) GUIDE 6FR AR Medtronic 1 [id number] 611149 09645 323373 1 2.0 SH catheter (NH7LC5DM) COBRA RX 3.0 X Celonova 1 211991 [id number] 6211593 1 8 [id number] 18 stent Biosciences () TR BAND Terumo 1 [id number] 066773 482755 447505 40 Standard ([id number]) Signature Audit Marble Stage Time Signature Unsigned Intra-Procedure 04/24/2019 Ashia Salgado 12:18:55 PM RT(R) Signatures Performing Physician : Signature : Chong Dubose MD Date : Time : Monitor : Ashia Salgado RT Signature : Date : Time : Nurse : Montrell Genao RN Signature : Date : Time : [facility] [address] [place] [address]
--- NOTE | ~2019-04-24 | OP ---
PATIENT NAME: SHRUTHI HERNÁNDEZ MEDICAL RECORD: [id number] :60 LOCATION:D.CAT ADMISSION DATE: SURGEON: RUFINO ROUSE MD DATE OF OPERATION: 04/24/2019 PROCEDURES: 1. PTCA stent RCA. 2. Left heart catheterization. 3. Selective coronary angiography. 4. Left ventriculogram. INDICATION: Angina and coronary artery disease. PROCEDURE IN DETAIL: After informed consent was obtained and after a detailed description of risks, benefits as well as alternative therapies, the patient elected to proceed with angiogram and angioplasty. The right femoral area was prepped and draped in normal sterile fashion. Right femoral artery was cannulated via modified Seldinger technique with placement of 6-Mauritanian sheath. All catheters exchanged through this sheath. FINDINGS: The left ventriculogram was performed in standard 30-degree OLIVERA view, reveals good cardiac wall motion throughout all segments. Overall ejection fraction estimated 60%. SELECTIVE CORONARY ANGIOGRAPHY: 1. Left main is with no significant angiographic disease. 2. Left anterior descending has moderate irregularities, but no flow-limiting stenosis. 3. The left circumflex has moderate irregularities, but no flow-limiting stenosis. 4. Right coronary artery has 85% stenosis in the mid vessel. PTCA STENT OF THE RCA: The stent used was a 3.0 x 22 mm Gavin. Result was 0% residual stenosis. OVERALL IMPRESSION: Successful percutaneous transluminal coronary angioplasty stent of the right coronary artery going from 85% initial stenosis to 0% residual. TRANSINT:[id number] Voice Confirmation ID: [id number] DOCUMENT ID: [id number] RUFINO ROUSE MD CC: [id number] DICTATION DATE: 04/25/1945 HOGSHEAD LINER: 04/25/19 0955 DEP CLI 04/24/[address] [address]
[2019-04-24] MEDS ORDERED: ALBUTEROL SULF8.5 GM INH (10:13)
[2019-04-24] MEDS ORDERED: TRELEGY ELLIPT1 EACH INH (10:14)
[2019-04-24 10:24] VITALS: BP 134/78; Ht 180.3 cm; Wt 72.7 kg
[2019-04-24 10:33] LABS: BASOPHILS 0.2 % (0-2); HEMATOCRIT 47.2 % (42.0-54.0); HEMOGLOBIN 16.6 g/dL (13.5-17.5); IMMATURE GRANULOCYTES 0.4 % (0-5); LYMPHOCYTES 22.6 % (15-50); MCH 32.1 pg (26.0-34.0); MCHC 35.2 g/dL (31.0-37.0); MCV 91.3 fL (80.0-100.0); MEAN PLATELET VOLUME 9.6 fL (7.4-10.4); MONOCYTES 9.1 % (2-11); NEUTROPHILS 64.7 % (40-80); RBC 5.17 10x6/uL (4.20-6.10); WBC 10.9 10x3/uL (4.8-10.8)
[2019-04-24 10:39] LABS: PLATELET COUNT 315 10x3/uL (130-400)
[2019-04-24 11:00] LABS: ALT (SGPT) 13 U/L (10-68); CALC OSMOLALITY 270 mosm/kg (275-300); CALCIUM 9.1 mg/dL (8.5-10.1); CARBON DIOXIDE 26.9 mmol/L (21.0-32.0); CHLORIDE - SERUM 103 mmol/L (98-107); CHOL - HDL RATIO 5.1 ratio (2.3-4.9); CHOLESTEROL, TOTAL 164 mg/dL (0-200); CREATININE - SERUM 0.8 mg/dL (0.6-1.3); GLUCOSE 107 mg/dL (74-106); HDL CHOLESTEROL 32 mg/dL (32-96); LDL CHOLESTEROL 109 mg/dL (0-100); LDL-HDL RATIO 3.4 ratio (1.5-3.5); POTASSIUM - SERUM 3.9 mmol/L (3.5-5.1); SODIUM 136 mmol/L (136-145); TRIGLYCERIDE 116 mg/dL (30-200); UREA NITROGEN 10 mg/dL (7-18); eGFR NON AFRICAN AMERICAN > 90 mL/min (90-120)
--- NOTE | 2019-04-24 12:26 | NUR ---
PT ARRIVED BY STRETCHER. PLACED ON MONITOR. ASSESSMENT COMPLETED.
[2019-04-24] MEDS ORDERED: BAYER CHEWABLE81 MG PO (12:33)
[2019-04-24] MEDS ORDERED: PLAVIX75 MG PO (12:34)
--- NOTE | 2019-04-24 12:41 | NUR ---
RIGHT RADIAL TR BAND IN PLACE. NO BLEEDING/HEMATOMA NOTED. VSS.
--- NOTE | 2019-04-24 13:05 | NUR ---
DR. ROUSE CALLED TO SPEAK WITH FAMILY. NO FAMILY AT BEDSIDE AT THIS TIME.
--- NOTE | 2019-04-24 13:10 | NUR ---
RIGHT RADIAL TR BAND IN PLACE. NO BLEEDING/HEMATOMA NOTED. VSS. FAMILY AT BEDSIDE.
--- NOTE | 2019-04-24 13:40 | NUR ---
RIGHT RADIAL TR BAND IN PLACE. FINGERS TO RIGHT HAND WARM TO TOUCH. CAP REFILL < 3 SECS. PULSE PALPABLE. VSS. PT RESTING COMFORTABLY.
--- NOTE | 2019-04-24 14:18 | NUR ---
PT MORE ALERT AND AWAKE. RIGHT RADIAL TR BAND IN PLACE. NO BLEEDING/HEMATOMA NOTED. HEAD OF BED AT 30 DEGREES. PT GIVEN SANDWICH TRAY AND DRINK. DENIES NAUSEA.
--- NOTE | 2019-04-24 15:11 | NUR ---
4cc OF AIR REMOVED FROM TR BAND. NO BLEEDING/HEMATOMA NOTED. PT WATCHING TELEVISION. NO NEEDS AT THIS TIME. TOLERATED FOOD/DRINK. DENIES NAUSEA. CALL LIGHT WITHIN REACH.
--- NOTE | 2019-04-24 15:28 | NUR ---
4cc OF AIR REMOVED FROM TR BAND. PT TOLERATED WELL. NO BLEEDING/HEMATOMA NOTED. VSS. FAMILY AT BEDSIDE. CALL LIGHT WITHIN REACH.
--- NOTE | 2019-04-24 15:45 | NUR ---
TR BAND REMOVED. DRESSING APPLIED. NO BLEEDING/HEMATOMA NOTED. RIGHT WRIST BRACE ON AT THIS TIME.
--- NOTE | 2019-04-24 15:50 | NUR ---
LEFT ARM PIV D/C'D WITH CATH TIP INTACT. PT TOLERATED WELL. RIGHT WRIST DRESSING C/D/I. NO S/S OF HEMATOMA NOTED. PT INSTRUCTED TO GET DRESSED. PT DRESSED AND AMBULATED TO RESTROOM. VOIDED WITHOUT DIFFICULTY.
--- NOTE | 2019-04-24 15:53 | NUR ---
DISCUSSED DISCHARGE INSTRUCTIONS WITH PT AND PT'S FAMILY. THEY VOICED UNDERSTANDING.
--- NOTE | 2019-04-24 16:05 | NUR ---
RIGHT WRIST DRESSING C/D/I. PT REFUSING TO WEAR WRIST BRACE. NO S/S OF HEMATOMA NOTED. PT TAKEN OUT TO VEHICLE BY WHEELCHAIR. NO S/S OF DISTRESS NOTED. ALL BELONGINGS AND PAPERWORK IN HAND.
== END 2019-04-24 16:05 | disposition home or self-care (01) ==
LOC: D.CATH 09:59
PROVIDERS: ATTEND Internal Medicine Interventional Cardiology
DX: I25.119 Atherosclerotic heart disease of native coronary artery with unspecified angina pectoris (principal); Z01.812 Encounter for preprocedural laboratory examination
CPT/HCPCS: 93458; C9600

== ENCOUNTER 2019-06-25 11:38 | Emergency (ER) | payer MEDICARE ==
[~2019-06-25] VITALS: Ht 180.3 cm; Wt 70.5 kg
[~2019-06-25 11:38] MED LIST changes: +ALBUTEROL SULF8.5 GM INH; +BAYER CHEWABLE81 MG PO; +PLAVIX75 MG PO; +TRELEGY ELLIPT1 EACH INH
[2019-06-25 11:47] VITALS: BP 117/71; Ht 180.3 cm; Wt 70.5 kg
== END 2019-06-25 12:35 | disposition home or self-care (01) ==
LOC: D.ER 11:38
DX: R04.0 Epistaxis (principal)

== ENCOUNTER → 2019-06-27 12:15 | Outpatient (CLI) | payer MEDICARE ==
[2019-06-25 11:47] VITALS: BMI 21.6
== END | disposition home or self-care (01) ==
LOC: D.RT 03-13 10:00
PROVIDERS: ATTEND Internal Medicine Pulmonary Disease
DX: J44.9 Chronic obstructive pulmonary disease, unspecified (principal); J84.10 Pulmonary fibrosis, unspecified

== ENCOUNTER 2019-12-16 13:49 | Emergency (ER) | payer MEDICARE ==
[~2019-12-16] VITALS: Ht 180.3 cm; Wt 70.5 kg
[~2019-12-16 13:49] MED LIST changes: +FUROSEMIDE20 MG PO; +LEVOFLOXACIN500 MG PO; +MUCINEX DM ER1 EAC1 PO; +NIASPAN500 MG PO; +PREDNISONE10 MG PO; +TESSALON PERLE100 MG PO; +VIBRAMYCIN 100100 MG PO
[2019-12-16 14:03] VITALS: Ht 180.3 cm; Wt 70.5 kg
[2019-12-16 15:04] LABS: BASOPHILS 0.2 % (0-2); EOSINOPHILS 1.4 % (0-7); HEMATOCRIT 47.5 % (42.0-54.0); HEMOGLOBIN 15.5 g/dL (13.5-17.5); IMMATURE GRANULOCYTES 0.3 % (0-5); LYMPHOCYTES 15.8 % (15-50); MCH 30.3 pg (26.0-34.0); MCHC 32.6 g/dL (31.0-37.0); MEAN PLATELET VOLUME 9.8 fL (7.4-10.4); NEUTROPHILS 73.3 % (40-80); RBC 5.11 10x6/uL (4.20-6.10); RDW 14.5 % (11.5-14.5); WBC 11.6 10x3/uL (4.8-10.8)
[2019-12-16 15:12] LABS: PLATELET COUNT 460 10x3/uL (130-400)
[2019-12-16 15:19] LABS: INR 1.04 (0.85-1.17); PROTIME 13.5 SECONDS (11.6-15.0)
[2019-12-16 15:20] LABS: APTT 34.4 SECONDS (22.8-39.4)
[2019-12-16 15:23] LABS: CALC OSMOLALITY 272 mosm/kg (275-300); CALCIUM 9.2 mg/dL (8.5-10.1); CARBON DIOXIDE 24.7 mmol/L (21.0-32.0); CHLORIDE - SERUM 101 mmol/L (98-107); GLUCOSE 104 mg/dL (74-106); POTASSIUM - SERUM 3.6 mmol/L (3.5-5.1); SODIUM 137 mmol/L (136-145); UREA NITROGEN 10 mg/dL (7-18); eGFR NON AFRICAN AMERICAN 81 mL/min (90-120)
[2019-12-16 15:39] LABS: ALBUMIN 3.4 g/dL (3.4-5.0); ALKALINE PHOSPHATASE 111 U/L (30-120); ALT (SGPT) 14 U/L (10-68); CKMB 1.4 U/L (0.0-3.6); CREATINE KINASE 43 UL (21-232); PRO BNP 599 pg/mL (0-125); PROTEIN - SERUM 8.4 g/dL (6.4-8.2)
[2019-12-16 15:46] LABS: TROPONIN-I < 0.017 ng/mL (0.000-0.060)
[2019-12-16] MEDS ORDERED: MEDROL DOSE PACK4 MG PO (16:33)
[2019-12-16] MEDS ORDERED: ZPAK PO (16:33)
[2019-12-16 18:31] VITALS: BP 144/78
== END 2019-12-16 18:33 | disposition home or self-care (01) ==
LOC: D.ER 13:49
PROVIDERS: Family Medicine
DX: J40 Bronchitis, not specified as acute or chronic (principal); R05 Cough; J84.10 Pulmonary fibrosis, unspecified; J44.9 Chronic obstructive pulmonary disease, unspecified; Z72.0 Tobacco use

== ENCOUNTER 2020-01-21 19:05 | Inpatient (IN) | payer MEDICARE ==
[~2020-01-21] VITALS: Ht 180.3 cm; Wt 90.6 kg
[~2020-01-21 19:05] MED LIST changes: +MEDROL DOSE PACK4 MG PO; +ZPAK PO
[2020-01-21 20:05] VITALS: BP 102/71
[2020-01-21 20:35] LABS: BASOPHILS 0.2 % (0-2); EOSINOPHILS 1.1 % (0-7); HEMATOCRIT 48.8 % (42.0-54.0); HEMOGLOBIN 15.6 g/dL (13.5-17.5); IMMATURE GRANULOCYTES 0.3 % (0-5); MCH 29.1 pg (26.0-34.0); MONOCYTES 9.1 % (2-11); NEUTROPHILS 74.3 % (40-80); PLATELET COUNT 482 10x3/uL (130-400); RBC 5.36 10x6/uL (4.20-6.10); RDW 14.7 % (11.5-14.5); WBC 11.4 10x3/uL (4.8-10.8)
[2020-01-21 20:49] LABS: APTT 35.9 SECONDS (22.8-39.4); INR 1.19 (0.85-1.17); PROTIME 15.1 SECONDS (11.6-15.0)
[2020-01-21 20:51] LABS: CALC OSMOLALITY 276 mosm/kg (275-300); CALCIUM 8.9 mg/dL (8.5-10.1); CARBON DIOXIDE 26.4 mmol/L (21.0-32.0); CHLORIDE - SERUM 102 mmol/L (98-107); CREATININE - SERUM 1.4 mg/dL (0.6-1.3); GLUCOSE 108 mg/dL (74-106); POTASSIUM - SERUM 3.5 mmol/L (3.5-5.1); SODIUM 138 mmol/L (136-145); UREA NITROGEN 12 mg/dL (7-18); eGFR NON AFRICAN AMERICAN 55 mL/min (90-120)
--- NOTE | 2020-01-21 21:02 | NUR ---
PT LYING IN BED RESTING, NO ACUTE DISTRESS NOTED, NO NEEDS EXPRESSED AT THIS TIME. WILL CONTINUE TO MONITOR.
[2020-01-21 21:08] LABS: ALBUMIN 3.3 g/dL (3.4-5.0); ALKALINE PHOSPHATASE 97 U/L (30-120); ALT (SGPT) 19 U/L (10-68); BILIRUBIN - TOTAL 0.76 mg/dL (0.2-1.3); CREATINE KINASE 52 UL (21-232); PRO BNP 2931 pg/mL (0-125); PROTEIN - SERUM 8.1 g/dL (6.4-8.2)
[2020-01-21 21:13] LABS: TROPONIN-I < 0.017 ng/mL (0.000-0.060)
[2020-01-21 22:44] VITALS: BP 106/72
--- NOTE | 2020-01-21 23:30 | NUR ---
PT BROUGHT TO FLOOR VIA STRETCHER. AMBULATED TO BED. MADE PT VERY SOB. O2 73% ON 5L/NC. PLACED ON 6L AND INSTRUCTED TO TAKE SLOW DEEP BREATHS. PT ABLE TO COME UP TO 88%. CALLED RESP TO COME GIVE BREATING TREATMENT. PT PLACED ON 8L/HFNC AFTER TREATMENT, O2 93%. BILAT UPPER LOBES DIMINISHED. IV LEFT FA INFUSING NS @ 100. CALLED LANIE RICHARD TO VERIFY SOLUMEDROL DOSE. PT HAD 125MG SOLUMEDROL ONE HOUR AGO AND NOW HAS 250MG ORDERED FOR NOW AND Q8H. ORDERS TO CHANGE TO 125MG Q8H AND TO NOT GIVE ANY NOW, START NEXT DOSE.
[2020-01-22] VITALS: BP 130/85
[2020-01-22 01:31] VITALS: BMI 20.2
[2020-01-22 04:00] VITALS: BP 106/68
[2020-01-22 04:30] LABS: BASOPHILS 0 % (0-2); EOSINOPHILS 0.1 % (0-7); HEMATOCRIT 43.8 % (42.0-54.0); HEMOGLOBIN 13.9 g/dL (13.5-17.5); IMMATURE GRANULOCYTES 0.3 % (0-5); MCH 28.7 pg (26.0-34.0); MCHC 31.7 g/dL (31.0-37.0); MCV 90.5 fL (80.0-100.0); MONOCYTES 1.2 % (2-11); NEUTROPHILS 90.4 % (40-80); PLATELET COUNT 470 10x3/uL (130-400); RBC 4.84 10x6/uL (4.20-6.10); RDW 14.6 % (11.5-14.5)
[2020-01-22 04:40] LABS: WBC 6.9 10x3/uL (4.8-10.8)
[2020-01-22 04:51] LABS: ANION GAP 16.2 mmol/L (8-16); CALCIUM 8.2 mg/dL (8.5-10.1); CARBON DIOXIDE 20.3 mmol/L (21.0-32.0); CREATININE - SERUM 1.2 mg/dL (0.6-1.3); POTASSIUM - SERUM 3.5 mmol/L (3.5-5.1)
--- NOTE | 2020-01-22 09:04 | NUR ---
HE IS ON 8 LITER NC HIGH FLOW, HE IS VERY SOB WHEN GETTING OUT OF BED TO USE THE URINAL.
[2020-01-22 09:28] VITALS: BP 118/82
[2020-01-22 13:05] VITALS: BMI 27.0
[2020-01-22 13:20] VITALS: BP 107/65
[2020-01-22 13:41] VITALS: Ht 180.3 cm; Wt 90.6 kg
[2020-01-22 16:45] VITALS: BP 125/84
--- NOTE | 2020-01-22 16:52 | NUR ---
HE DE-SATED 71% ON 8 L HIGH FLOW NC, WHEN OUT OF BED. HIS HEART RATE WAS 125-127. RT CAME TO GIVE HIM AN UD. SAT IS 95% ON 10 L HIGH FLOW NC.
[2020-01-22 20:00] VITALS: BP 102/73
[2020-01-23] VITALS: BP 103/73
[2020-01-23 01:37] LABS: BASOPHILS 0 % (0-2); EOSINOPHILS 0 % (0-7); HEMATOCRIT 42.9 % (42.0-54.0); HEMOGLOBIN 13.6 g/dL (13.5-17.5); IMMATURE GRANULOCYTES 0.4 % (0-5); MCHC 31.7 g/dL (31.0-37.0); MCV 91.5 fL (80.0-100.0); MEAN PLATELET VOLUME 10.1 fL (7.4-10.4); MONOCYTES 5.3 % (2-11); NEUTROPHILS 89.3 % (40-80); PLATELET COUNT 488 10x3/uL (130-400); RBC 4.69 10x6/uL (4.20-6.10); RDW 14.7 % (11.5-14.5); WBC 20.1 10x3/uL (4.8-10.8)
[2020-01-23 01:40] LABS: ANION GAP 17.3 mmol/L (8-16); CALCIUM 8.4 mg/dL (8.5-10.1); CARBON DIOXIDE 19.4 mmol/L (21.0-32.0); CREATININE - SERUM 1.2 mg/dL (0.6-1.3); POTASSIUM - SERUM 3.7 mmol/L (3.5-5.1)
[2020-01-23 01:46] LABS: ALBUMIN 3.1 g/dL (3.4-5.0); BILIRUBIN - TOTAL 0.46 mg/dL (0.2-1.3); MAGNESIUM - SERUM 2.2 mg/dL (1.8-2.4); PROTEIN - SERUM 7.2 g/dL (6.4-8.2)
--- NOTE | 2020-01-23 02:46 | NUR ---
ASSESSED AT THE BEGINNING OF THE SHIFT. PT IS ALERT AND ORIENTED, ABLE TO VERBALIZE NEEDS. BEFORE NIGHT MEDS WERE TAKEN PT RECEIVED A BATH DUE TO INCONT OF URINE. AT THIS SAME TIME HIS O2 SATS WERE DOWN TO 70'S AND LOW 80'S. RESP WAS CALLED AND HE ADJUSTED O2 TO 9 LITERS OF WHICH HE WAS ON HIGH FLOW TUBING. MEDS WERE TAKEN ORDERED AND HE WAS WATCHING TV. AT ABOUT 0045 HE WAS TOLD WE NEEDED A UA AND A NEW URINAL WAS GIVEN TO HIM. AT 0100 HE WAS FOUND INCON. WITH 02 OFF AND O2 SATS IN THE 60'S. COULD NOT GET IT BACK UP AND A RAPID WAS CALLED AT 0115. SEE RAPID RESPOSE SHEET FOR DETAILS. AT THIS TIME HE IS NOW ON BIPAP AND SEEMS TO BE DOING WELL. WE CALLED DR العلي SEVERAL TIMES BUT DID NOT GET A RESPONSE FROM HIM SO DR KIM WAS CALLED BY MARCOS DELA CRUZ.
[2020-01-23 04:00] VITALS: BP 113/84
[2020-01-23 05:43] LABS: BASOPHILS 0 % (0-2); EOSINOPHILS 0 % (0-7); HEMATOCRIT 38.5 % (42.0-54.0); IMMATURE GRANULOCYTES 0.2 % (0-5); LYMPHOCYTES 4.8 % (15-50); MCH 28.3 pg (26.0-34.0); MCHC 31.2 g/dL (31.0-37.0); MCV 90.8 fL (80.0-100.0); MEAN PLATELET VOLUME 9.9 fL (7.4-10.4); MONOCYTES 4.8 % (2-11); NEUTROPHILS 90.2 % (40-80); PLATELET COUNT 411 10x3/uL (130-400); RBC 4.24 10x6/uL (4.20-6.10); RDW 14.6 % (11.5-14.5); WBC 16.4 10x3/uL (4.8-10.8)
[2020-01-23 06:19] LABS: CALC OSMOLALITY 278 mosm/kg (275-300); CALCIUM 8.1 mg/dL (8.5-10.1); CARBON DIOXIDE 21.9 mmol/L (21.0-32.0); CHLORIDE - SERUM 107 mmol/L (98-107); GLUCOSE 131 mg/dL (74-106); POTASSIUM - SERUM 3.8 mmol/L (3.5-5.1); SODIUM 138 mmol/L (136-145); UREA NITROGEN 15 mg/dL (7-18); eGFR NON AFRICAN AMERICAN 81 mL/min (90-120)
[2020-01-23 06:40] LABS: UDS - AMPHET NEGATIVE QUAL (NEGATIVE); UDS - BARB NEGATIVE QUAL (NEGATIVE); UDS - BENZO POSITIVE QUAL (NEGATIVE); UDS - COCAINE NEGATIVE QUAL (NEGATIVE); UDS - OPIATE NEGATIVE QUAL (NEGATIVE); UDS - PCP NEGATIVE QUAL (NEGATIVE); UDS - THC NEGATIVE QUAL (NEGATIVE)
[2020-01-23 07:37] LABS: BACTERIA FEW /hpf (NEGATIVE); BILIRUBIN NEGATIVE (NEGATIVE); EPITHELIAL CELLS 0-5 /hpf (0-5); GLUCOSE NEGATIVE (NEGATIVE); KETONE NEGATIVE (NEGATIVE); NITRITE NEGATIVE (NEGATIVE); RED CELLS - URINE OCC /hpf (0-5); UROBILINOGEN NORMAL (NORMAL); WHITE CELLS - URINE RARE /hpf (NEGATIVE)
[2020-01-23 08:45] VITALS: BP 119/79
--- NOTE | 2020-01-23 10:20 | NUR ---
HE IS OFF THE BIPAP, HE IS EATING BREAKFAST. HE IS VERY SOB JUST EATING BREAKFAST. BACK ON THE BIPAP. HIS SISTER HAS CALLED AND SAID THEY WERE TALKING ABOUT HOSPICE BEFORE COVID HIT. I TALKED TO HIM ABOUT WHAT HIS SISTER HAD SAID AND HE SAID SOMETHING ABOUT "GETTING A MACHINE TO HELP" ANNELISE, OUR CASE WORKING IS AWARE OF THIS. HIS SAT'S IS 95% WHEN HE IS RESTING WITH THE BIPAP ON.
[2020-01-23 12:30] VITALS: BP 144/71
[2020-01-23 16:47] VITALS: BP 107/71
--- NOTE | 2020-01-23 17:37 | NUR ---
HIS SISTER IS HERE, SHE AND THE RT STATED HE LOOKED LIKE HE HAD A SEIZURE, EACH TIMES LASTING A FEW SECONDS. I ATTEMPTED TO INFORM DR. KIM OF THIS, BUT HE WAS HEADED TO ANOTHER UNIT.
[2020-01-23 20:00] VITALS: BP 106/73
[2020-01-24 04:00] VITALS: BP 110/72
[2020-01-24 06:54] LABS: HEMATOCRIT 36.9 % (42.0-54.0); HEMOGLOBIN 11.7 g/dL (13.5-17.5); LYMPHOCYTES 6.7 % (15-50); MCH 28.9 pg (26.0-34.0); MCHC 31.7 g/dL (31.0-37.0); MCV 91.1 fL (80.0-100.0); MEAN PLATELET VOLUME 9.8 fL (7.4-10.4); PLATELET COUNT 388 10x3/uL (130-400); RBC 4.05 10x6/uL (4.20-6.10); RDW 14.2 % (11.5-14.5)
[2020-01-24 06:55] LABS: WBC 11.9 10x3/uL (4.8-10.8)
[2020-01-24 07:03] LABS: CALC OSMOLALITY 279 mosm/kg (275-300); CALCIUM 7.9 mg/dL (8.5-10.1); CARBON DIOXIDE 25.2 mmol/L (21.0-32.0); CHLORIDE - SERUM 106 mmol/L (98-107); CREATININE - SERUM 0.8 mg/dL (0.6-1.3); GLUCOSE 128 mg/dL (74-106); MAGNESIUM - SERUM 2.3 mg/dL (1.8-2.4); PHOSPHOROUS 3.2 mg/dL (2.5-4.9); POTASSIUM - SERUM 4.3 mmol/L (3.5-5.1); SODIUM 138 mmol/L (136-145); UREA NITROGEN 17 mg/dL (7-18); eGFR NON AFRICAN AMERICAN > 90 mL/min (90-120)
[2020-01-24 09:19] VITALS: BP 112/78
--- NOTE | 2020-01-24 11:47 | NUR ---
resting in bed, no distress noted, iv infusing, cpap in place, cont to monitor resp status, lasix given iv
[2020-01-24 12:43] VITALS: BP 122/69
--- NOTE | 2020-01-24 15:15 | NUR ---
PT REFUSED LUNCH AND BREAKFAST THAT WAS LEFT BY FAMILY, REFUSING TO TURN AND POSITION OFF HIS BACK, INCONT CARE PROVIDED AND CREAM APPLIED
[2020-01-24 17:54] VITALS: BP 96/62
--- NOTE | 2020-01-24 18:12 | NUR ---
SISTER WANTS TO TAKE PT HOME SUNDAY AND PUT HIM ON HOSPICE, WANTS TO TALK TOMORROW WITH
[2020-01-24 20:00] VITALS: BP 113/66
[2020-01-25] VITALS: BP 105/68
[2020-01-25 04:00] VITALS: BP 115/75
[2020-01-25 06:47] LABS: HEMATOCRIT 41.9 % (42.0-54.0); LYMPHOCYTES 7.3 % (15-50); MCH 28.2 pg (26.0-34.0); MCV 90.9 fL (80.0-100.0); MEAN PLATELET VOLUME 10.2 fL (7.4-10.4); NEUTROPHILS 87.7 % (40-80); PLATELET COUNT 427 10x3/uL (130-400); RBC 4.61 10x6/uL (4.20-6.10); RDW 13.9 % (11.5-14.5); WBC 13.1 10x3/uL (4.8-10.8)
[2020-01-25 06:56] LABS: CALC OSMOLALITY 278 mosm/kg (275-300); CALCIUM 7.7 mg/dL (8.5-10.1); CARBON DIOXIDE 27.3 mmol/L (21.0-32.0); CHLORIDE - SERUM 102 mmol/L (98-107); GLUCOSE 147 mg/dL (74-106); PHOSPHOROUS 2.8 mg/dL (2.5-4.9); SODIUM 137 mmol/L (136-145); UREA NITROGEN 18 mg/dL (7-18); eGFR NON AFRICAN AMERICAN 81 mL/min (90-120)
--- NOTE | 2020-01-25 07:39 | NUR ---
RESTING IN BED, EYES CLOSED, NO DISTRESS NOTED, BIPAP IN PLACE,
[2020-01-25 08:00] VITALS: BP 121/71
--- NOTE | 2020-01-25 10:49 | NUR ---
DR LOPES SPOKE WITH PT SISTER KOSTA, PT OFF MASK AT PRESENT TIME, ON HIGH FLOW
[2020-01-25 12:00] VITALS: BP 109/70
[2020-01-25 16:00] VITALS: BP 100/52
--- NOTE | 2020-01-25 18:34 | NUR ---
REMAINS ON NC AT 15L, CONT TO MONITOR PULSE OX, USING URINAL TO ASSIST WITH KEEPING DOWN O2 USE
[2020-01-25 20:00] VITALS: BP 111/72
[2020-01-26] VITALS (7 sets, daily range): BP systolic 109–120; BP diastolic 63–75
[2020-01-26 04:59] LABS: HEMATOCRIT 39.6 % (42.0-54.0); HEMOGLOBIN 12.6 g/dL (13.5-17.5); LYMPHOCYTES 6.5 % (15-50); MCHC 31.8 g/dL (31.0-37.0); NEUTROPHILS 88.2 % (40-80); PLATELET COUNT 410 10x3/uL (130-400); RBC 4.35 10x6/uL (4.20-6.10); RDW 13.9 % (11.5-14.5); WBC 12.7 10x3/uL (4.8-10.8)
[2020-01-26 05:06] LABS: CALC OSMOLALITY 282 mosm/kg (275-300); CALCIUM 7.4 mg/dL (8.5-10.1); CHLORIDE - SERUM 102 mmol/L (98-107); GLUCOSE 176 mg/dL (74-106); PHOSPHOROUS 2.2 mg/dL (2.5-4.9); POTASSIUM - SERUM 3.5 mmol/L (3.5-5.1); SODIUM 138 mmol/L (136-145); UREA NITROGEN 20 mg/dL (7-18); eGFR NON AFRICAN AMERICAN 81 mL/min (90-120)
--- NOTE | 2020-01-26 08:21 | NUR ---
PT SITTING UP IN BED WITH BIPAP IN PLACE. PT DENIES PAIN AT THIS TIME. IV TO LEFT FOREARM WITH NS @ 100ML/HR INFUSING VIA PUMP. SITE WITHOUT REDNESS OR EDEMA. DENIES FURTHER NEEDS AT THSI TIME. CL WITHIN REACH. ENCOURAGED TO CALL WITH NEEDS. CONTINUE POC
--- NOTE | 2020-01-26 09:39 | NUR ---
PT SITTING UP IN BED, BIPAP IN PLACE. NO ACUTE DISTRESS NOTED AT THIS TIME. MORNING MEDICATIONS ADMINISTERED PER MD ORDERS. DENIES FURTHER NEEDS AT THIS TIME. CL WITHIN REACH. ENCOURAGED TO CALL WITH NEEDS.
--- NOTE | 2020-01-26 13:55 | NUR ---
Nutrition follow-up: Diet: Regular as tolerated PO intake 100% of meals labs reviewed Wt: 199# RDN following.
--- NOTE | 2020-01-26 14:49 | MORECARE ---
CASE MANAGEMENT DISCHARGE SUMMARY PATIENT: SHRUTHI HERNÁNDEZ UNIT: [id number] ADM DATE: 01/21/20 AGE: 60 : 60 SEX: M ROOM/BED: D.2205 AUTHOR: NADJA NIEVES PHYSICIAN: REFERRING PHYSICIAN: MAXIMO KIM MD DATE OF SERVICE: 01/26/20 Discharge Plan Patient Name: SHRUTHI HERNÁNDEZ Facility: [facility]:[place] : 1960 Planned Disposition: Anticipated Discharge Date: Discharge Date: Expected LOS: Initial Reviewer: [email or web address] Initial Review Date: 01/21/2020 Generated: 01/26/20 3:49 pm Comments DCP- Discharge Planning Updated by [email or web address]: Brittany Collins on 01/26/20 1:[address] Patient Name: SHRUTHI HERNÁNDEZ Admission Status: ER Accout number: [id number] Admission Date: 01-21-2020 : 1960 Admission Diagnosis: Attending: MAXIMO KIM Current LOS: 2 Anticipated DC Date: Planned Disposition: Primary Insurance: [employer] ADV Discharge Planning Comments: PATIENT AND FAMILY CONSIDERING [facility]. IN HOSPICE MEETING WITH SISTER TODAY AT 2PM. DOCUMENTS FAXED TO [facility] AT [phone]. Receiving Distribution Station Operator: Safia Robins DCP- Discharge Planning Updated by [id number]: Sarah Waddell on 01/26/20 7:[address] SPOKE WITH TAMMY AT [facility] AND THEY ARE WORKING ON GETTING HIM SET UP FOR HOSPICE AT HOME. SHE WILL CALL ME BACK AFTER THEIR MORNING MEETING External Providers External Provider: [facility] Next Contact Date: Service Request Date: Service Type: Resolution: Reviewer: Comments: Patient Name: SHRUTHI HERNÁNDEZ Page [phone] at 1447 All edits/amendments must be made on the electronic document DICTATION DATE: 01/26/20 144 VOIP ENGINEER: BRAXTON 01/26/20 1449 RPT#: [id number] DC DATE: STATUS: [place] [address] END OF REPORT
--- NOTE | 2020-01-26 15:34 | MORECARE ---
CASE MANAGEMENT DISCHARGE SUMMARY PATIENT: SHRUTHI HERNÁNDEZ UNIT: [id number] ADM DATE: 01/21/20 AGE: 60 : 60 SEX: M ROOM/BED: D.2205 AUTHOR: NADJA NIEVES PHYSICIAN: REFERRING PHYSICIAN: MAXIMO KIM MD DATE OF SERVICE: 01/26/20 Discharge Plan Patient Name: SHRUTHI HERNÁNDEZ [facility] : 1960 Planned Disposition: Hospice Home Anticipated Discharge Date: Discharge Date: Expected LOS: Initial Reviewer: [id number] Initial Review Date: 01/21/2020 Generated: 01/26/20 4:33 pm Comments DCP- Discharge Planning Updated by [email or web address]: Brittany Collins on 01/26/20 1:[address] Patient Name: SHRUTHI HERNÁNDEZ Admission Status: ER Accout number: [id number] Admission Date: 01-21-2020 : 1960 Admission Diagnosis: Attending: MAXIMO KIM Current LOS: 2 Anticipated DC Date: Planned Disposition: Primary Insurance: [employer] ADV Discharge Planning Comments: PATIENT AND FAMILY CONSIDERING [facility]. [place] HOS[place]ICE MEETING WITH SISTER TODAY AT 2PM. DOCUMENTS FAXED TO [facility] AT [phone]. Radiologist: Safia Robins DCP- Discharge Planning Updated by [id number]: Sarah Waddell on 01/26/20 7:[address] SPOKE WITH TAMMY AT [facility] AND THEY ARE WORKING ON GETTING HIM SET UP FOR HOSPICE AT HOME. SHE WILL CALL ME BACK AFTER THEIR MORNING MEETING Last DP export: 01/26/20 1:49 p Patient Name: SHRUTHI HERNÁNDEZ Page [id number] at 1534 All edits/amendments must be made on the electronic document DICTATION DATE: 01/26/201532 PHYSICAL SCIENCES PROFESSOR: BRAXTON 01/26/201532 RPT#: [id number] DC DATE: STATUS: ADM IN [facility] [address] [place] [address] END OF REPORT
--- NOTE | 2020-01-26 15:42 | MORECARE ---
CASE MANAGEMENT DISCHARGE SUMMARY PATIENT: SHRUTHI HERNÁNDEZ UNIT: [id number] ADM DATE: 01/21/20 AGE: 60 : 60 SEX: M ROOM/BED: D.2205 AUTHOR: EZEQUIELDOC PHYSICIAN: REFERRING PHYSICIAN: MAXIMO KIM MD DATE OF SERVICE: 01/26/20 Discharge Plan Patient Name: SHRUTHI HERNÁNDEZ Facility: [facility]:[place] : 1960 Planned Disposition: Hospice Home Anticipated Discharge Date: Discharge Date: Expected LOS: Initial Reviewer: [id number] Initial Review Date: 01/21/2020 Generated: 01/26/20 4:42 pm Comments DCP- Discharge Planning Updated by [id number]: Safia Robins on 01/26/20 2:[address] Patient Name: SHRUTHI HERNÁNDEZ Admission Status: ER Accout number: [id number] Admission Date: 01-21-2020 : 1960 Admission Diagnosis: Attending: MAXIMO KIM Current LOS: 5 Anticipated DC Date: Planned Disposition: Hospice Home Primary Insurance: WE[employer] MEDICARE ADV Discharge Planning Comments: LATE ENTRY- SUNDAY I MET WITH PATIENT AND HIS SISTER at bedside after explaining CM role and obtaining verbal consent. CM discussed availability / needs of home health, HOSPICE, REHAB and medical equipment. . SISTER IS HERE TO GET POA NOTORIZED. PATIENT WANTS [facility]. HOSPICE CALLED AND WAS COMMING TO SEE PATIENT IN THE AFTERNOON. Site Identification Specialist: Safia Robins DCP- Discharge Planning Updated by [id number]: Brittany Collins on 01/26/20 1:[address] Patient Name: SHRUTHI HERNÁNDEZ Admission Status: ER Accout number: [id number] Admission Date: 01-21-2020 : 1960 Admission Diagnosis: Attending: MAXIMO KIM Current LOS: 2 Anticipated DC Date: Planned Disposition: Primary Insurance: WE[employer] MEDICARE ADV Discharge Planning Comments: PATIENT AND FAMILY CONSIDERING [facility]. [place] [facility] MEETING WITH SISTER TODAY AT 2PM. DOCUMENTS FAXED TO [facility] AT [phone]. Site Identification Specialist: Safia Robins DCP- Discharge Planning Updated by [id number]: Sarah Waddell on 01/26/20 7:[address] SPOKE WITH TAMMY AT [facility] AND THEY ARE WORKING ON GETTING HIM SET UP FOR HOSPICE AT HOME. SHE WILL CALL ME BACK AFTER THEIR MORNING MEETING Last DP export: 01/26/20 2:34 p Patient Name: SHRUTHI HERNÁNDEZ Page [phone] at 1542 All edits/amendments must be made on the electronic document DICTATION DATE: 01/26/201541 PROP AND SCENERY MAKER: BRAXTON 01/26/201541 RPT#: [id number] DC DATE: STATUS: ADM IN [facility] [address] [place] [address] END OF REPORT
--- NOTE | 2020-01-27 01:20 | NUR ---
I have reviewed this patient and I concur with the Shift Assessment completed by the Licensed Practical Nurse today this shift.
[2020-01-27 04:00] VITALS: BP 153/66
[2020-01-27 04:53] LABS: HEMATOCRIT 38.8 % (42.0-54.0); HEMOGLOBIN 12.1 g/dL (13.5-17.5); LYMPHOCYTES 4.7 % (15-50); MCH 28.5 pg (26.0-34.0); MCHC 31.2 g/dL (31.0-37.0); MCV 91.3 fL (80.0-100.0); NEUTROPHILS 88.5 % (40-80); PLATELET COUNT 402 10x3/uL (130-400); RBC 4.25 10x6/uL (4.20-6.10); RDW 13.7 % (11.5-14.5); WBC 13.6 10x3/uL (4.8-10.8)
[2020-01-27 05:04] LABS: CALC OSMOLALITY 280 mosm/kg (275-300); CALCIUM 7.5 mg/dL (8.5-10.1); CARBON DIOXIDE 31.5 mmol/L (21.0-32.0); CHLORIDE - SERUM 104 mmol/L (98-107); CREATININE - SERUM 0.9 mg/dL (0.6-1.3); GLUCOSE 136 mg/dL (74-106); PHOSPHOROUS 2.6 mg/dL (2.5-4.9); SODIUM 139 mmol/L (136-145); UREA NITROGEN 16 mg/dL (7-18); eGFR NON AFRICAN AMERICAN > 90 mL/min (90-120)
[2020-01-27 05:11] LABS: POTASSIUM - SERUM 4.1 mmol/L (3.5-5.1)
[2020-01-27 09:03] VITALS: BP 119/75
[2020-01-27] MEDS ORDERED: PREDNISONE10 MG PO (09:18)
[2020-01-27] MEDS ORDERED: FOLIC ACID1 MG PO (09:19)
[2020-01-27] MEDS ORDERED: VITAMIN B-1100 M1 PO (09:19)
[2020-01-27] MEDS ORDERED: MULTI-DAY VITAM1 TAB PO (09:19)
--- NOTE | 2020-01-27 09:38 | NUR ---
HE IS WEARING THE BPAP THIS MORNING. DENIES ANY NEEDS, WAITING TO BE DISCHARGED WITH HOSPICE TODAY. HIS SISTER HAS CALLED ASKING ABOUT DISCHARGE THIS MORNING. I INFORMED THE CASE WORKERS ABOUT THE SISTER.
--- NOTE | 2020-01-27 09:58 | MORECARE ---
CASE MANAGEMENT DISCHARGE SUMMARY PATIENT: SHRUTHI HERNÁNDEZ UNIT: [id number] ADM DATE: 01/21/20 AGE: 60 : 60 SEX: M ROOM/BED: D.2205 AUTHOR: EZEQUIELDOC PHYSICIAN: REFERRING PHYSICIAN: MAXIMO KIM MD DATE OF SERVICE: 01/27/20 Discharge Plan Patient Name: SHRUTHI HERNÁNDEZ Facility: [facility]:[place] : 1960 Planned Disposition: Hospice Home Anticipated Discharge Date: Discharge Date: Expected LOS: Initial Reviewer: [id number] Initial Review Date: 01/21/2020 Generated: 01/27/20 10:57 am Comments DCP- Discharge Planning Updated by [email or web address]: Sarah Waddell on 01/27/20 8:[address] SPOKE WITH BRAVO (POA, SISTER) ABOUT THE PATIENT DISCHARGE TODAY. SHE WILL BE HERE AT 1300 TO PICK HIM UP, SISTER HAS SET UP TRANSPORTATION WITH HER PERSONAL FRIEND SHE STATED THAT THEY HAVE O2 AND BIPAP/.CPAP MACHINE THAT IS ALREADY SET WITH THE CORRECT SETTINGS. SHE WILL BRING THE STREACHER UP TO THE FLOOL. ZACKARY FLOW COORD. HAS CONTACTED [facility] AND PT TO MAKE SURE THEY WILL BE HERE AT 1300 TO HELP WITH THE TRANSFER. IMM EXPLAINED OVER THE PHONE WITH THE SISTER I WILL GIVEN HER A COPY WHEN SHE ARRIVES AT 1300. CM TO FOLLWO AND ASSIST NEEDED DCP- Discharge Planning Updated by [id number]: Safia Robins on 01/26/20 2:[address] Patient Name: SHRUTHI HERNÁNDEZ Admission Status: ER Accout number: [id number] Admission Date: 01-21-2020 : 1960 Admission Diagnosis: Attending: MAXIMO KIM Current LOS: 5 Anticipated DC Date: Planned Disposition: Hospice Home Primary Insurance: WE[employer] MEDICARE ADV Discharge Planning Comments: LATE ENTRY- SUNDAY I MET WITH PATIENT AND HIS SISTER at bedside after explaining CM role and obtaining verbal consent. CM discussed availability / needs of home health, HOSPICE, REHAB and medical equipment. . SISTER IS HERE TO GET POA NOTORIZED. PATIENT WANTS [facility]. HOSPICE CALLED AND WAS COMMING TO SEE PATIENT IN THE AFTERNOON. Form Setter Supervisor: Safia Robins DCP- Discharge Planning Updated by [id number]: Brittany Collins on 01/26/20 1:[address] Patient Name: SHRUTHI HERNÁNDEZ Admission Status: ER Accout number: [id number] Admission Date: 01-21-2020 : 1960 Admission Diagnosis: Attending: MAXIMO KIM Current LOS: 2 Anticipated DC Date: Planned Disposition: Primary Insurance: WE[employer] MEDICARE ADV Discharge Planning Comments: PATIENT AND FAMILY CONSIDERING [facility]. [place] HOS[place]ICE MEETING WITH SISTER TODAY AT 2PM. DOCUMENTS FAXED TO [facility] AT [phone]. Form Setter Supervisor: Safia Robins DCP- Discharge Planning Updated by [id number]: Sarah Waddell on 01/26/20 7:[address] SPOKE WITH TAMMY AT [facility] AND THEY ARE WORKING ON GETTING HIM SET UP FOR HOSPICE AT HOME. SHE WILL CALL ME BACK AFTER THEIR MORNING MEETING Last DP export: 01/26/20 2:42 p Patient Name: SHRUTHI HERNÁNDEZ Page [id number] at 0958 All edits/amendments must be made on the electronic document DICTATION DATE: 01/27/20956 LUMPIA WRAPPER MAKER: BRAXTON 01/27/20 0957 RPT#: [id number] DC DATE: STATUS: ADM IN [facility] [address] [place] [address] END OF REPORT
--- NOTE | 2020-01-27 10:04 | MORECARE ---
CASE MANAGEMENT DISCHARGE SUMMARY PATIENT: SHRUTHI HERNÁNDEZ UNIT: [id number] ADM DATE: 01/21/20 AGE: 60 : 60 SEX: M ROOM/BED: D.2205 AUTHOR: EZEQUIELDOC PHYSICIAN: REFERRING PHYSICIAN: MAXIMO KIM MD DATE OF SERVICE: 01/27/20 Discharge Plan Patient Name: SHRUTHI HERNÁNDEZ Facility: [facility]:[place] : 1960 Planned Disposition: Hospice Home Anticipated Discharge Date: Discharge Date: Expected LOS: Initial Reviewer: [id number] Initial Review Date: 01/21/2020 Generated: 01/27/20 11:04 am Comments DCP- Discharge Planning Updated by [id number]: Sarah Waddell on 01/27/20 8:[address] SPOKE WITH BRAVO (POA, SISTER) ABOUT THE PATIENT DISCHARGE TODAY. SHE WILL BE HERE AT 1300 TO PICK HIM UP, SISTER HAS SET UP TRANSPORTATION WITH HER PERSONAL FRIEND SHE STATED THAT THEY HAVE O2 AND BIPAP/.CPAP MACHINE THAT IS ALREADY SET WITH THE CORRECT SETTINGS. SHE WILL BRING THE STREACHER UP TO THE FLOOL. ZACKARY FLOW COORD. HAS CONTACTED [facility] AND PT TO MAKE SURE THEY WILL BE HERE AT 1300 TO HELP WITH THE TRANSFER. IMM EXPLAINED OVER THE PHONE WITH THE SISTER I WILL GIVEN HER A COPY WHEN SHE ARRIVES AT 1300. CM TO FOLLWO AND ASSIST NEEDED DCP- Discharge Planning Updated by [id number]: Safia Robins on 01/26/20 2:[address] Patient Name: SHRUTHI HERNÁNDEZ Admission Status: ER Accout number: [id number] Admission Date: 01-21-2020 : 1960 Admission Diagnosis: Attending: MAXIMO KIM Current LOS: 5 Anticipated DC Date: Planned Disposition: Hospice Home Primary Insurance: WE[employer] MEDICARE ADV Discharge Planning Comments: LATE ENTRY- SUNDAY I MET WITH PATIENT AND HIS SISTER at bedside after explaining CM role and obtaining verbal consent. CM discussed availability / needs of home health, HOSPICE, REHAB and medical equipment. . SISTER IS HERE TO GET POA NOTORIZED. PATIENT WANTS [facility]. HOSPICE CALLED AND WAS COMMING TO SEE PATIENT IN THE AFTERNOON. Manager Orange: Safia Robins DCP- Discharge Planning Updated by [id number]: Brittany Collins on 01/26/20 1:[address] Patient Name: SHRUTHI HERNÁNDEZ Admission Status: ER Accout number: [id number] Admission Date: 01-21-2020 : 1960 Admission Diagnosis: Attending: MAXIMO KIM Current LOS: 2 Anticipated DC Date: Planned Disposition: Primary Insurance: WE[employer] MEDICARE ADV Discharge Planning Comments: PATIENT AND FAMILY CONSIDERING [facility]. [place] HOSPICE MEETING WITH SISTER TODAY AT 2PM. DOCUMENTS FAXED TO [facility] AT [phone]. Manager Orange: Safia Robins DCP- Discharge Planning Updated by [id number]: Sarah Waddell on 01/26/20 7:[address] SPOKE WITH TAMMY AT [facility] AND THEY ARE WORKING ON GETTING HIM SET UP FOR HOSPICE AT HOME. SHE WILL CALL ME BACK AFTER THEIR MORNING MEETING External Providers External Provider: [facility] *(provides inpt [facility] Next Contact Date: Service Request Date: Service Type: Resolution: Reviewer: Comments: Coverage Notice Reviewer: [id number] - Sarah Waddell Notice Issued Date-Time: 01/27/2020 9:50 Notice Type: IM Discharge Notice Notice Delivered To: Family Member Relationship to Patient: Power of Back Roller Telegraph Mechanic Name: BRAVO OKEEFE Delivery Method: HAND - Hand Delivered Karissa Days: Prior Verbal Notification: Recipient Understood Notice: Yes Recipient Signature: Yes Med Rec Note Co-signed by Attending: Coverage Notice Comment: Last DP export: 01/27/20 8:58 a Patient Name: SHRUTHI HERNÁNDEZ Page 16462 at 1004 All edits/amendments must be made on the electronic document DICTATION DATE: 01/27/20 1004 LEAD SQL DEVELOPER: BRAXTON 01/27/20 1004 RPT#: [id number] DC DATE: STATUS: ADM IN [facility] [address] [place] [address] END OF REPORT
--- NOTE | 2020-01-27 13:04 | NUR ---
IV OUT REMOVED, TELE OFF. HOSPICE AND HIS SISTER IS HERE. HOSPICE DOES NOT HAVE THE CORRECT PUG IN FOR THE OXYGEN EQUIPMENT. HOSPICE IS MAKING PHONE CALLS TO GET THE CORRECT EQUIPMENT.
--- NOTE | 2020-01-27 16:30 | NUR ---
LEFT VIA CART WITH SISTER AND HOSPICE NURSE, AGUSTO VEGA.
--- NOTE | 2020-01-28 07:28 | MORECARE ---
CASE MANAGEMENT DISCHARGE SUMMARY PATIENT: SHRUTHI HERNÁNDEZ UNIT: [id number] ADM DATE: 01/21/20 AGE: 60 : 60 SEX: M ROOM/BED: D.2205 AUTHOR: NADJA NIEVES PHYSICIAN: REFERRING PHYSICIAN: MAXIMO KIM MD DATE OF SERVICE: 01/28/20 Discharge Plan Patient Name: SHRUTHI HERNÁNDEZ Facility: [facility]:[place] : 1960 Planned Disposition: Hospice Home Anticipated Discharge Date: Discharge Date: 01/27/2020 Expected LOS: 0 Initial Reviewer: [id number] Initial Review Date: 01/21/2020 Generated: 01/28/20 8:28 am Comments DCP- Discharge Planning Updated by [email or web address]: Sarah Waddell on 01/27/20 8:[address] SPOKE WITH BRAVO (POA, SISTER) ABOUT THE PATIENT DISCHARGE TODAY. SHE WILL BE HERE AT 1300 TO PICK HIM UP, SISTER HAS SET UP TRANSPORTATION WITH HER PERSONAL FRIEND SHE STATED THAT THEY HAVE O2 AND BIPAP/.CPAP MACHINE THAT IS ALREADY SET WITH THE CORRECT SETTINGS. SHE WILL BRING THE STREACHER UP TO THE FLOOL. ZACKARY DENIS COORD. HAS CONTACTED [facility] AND PT TO MAKE SURE THEY WILL BE HERE AT 1300 TO HELP WITH THE TRANSFER. IMM EXPLAINED OVER THE PHONE WITH THE SISTER I WILL GIVEN HER A COPY WHEN SHE ARRIVES AT 1300. CM TO FOLLWO AND ASSIST NEEDED DCP- Discharge Planning Updated by [id number]: Safia Robins on 01/26/20 2:[address] Patient Name: SHRUTHI HERNÁNDEZ Admission Status: ER Accout number: [id number] Admission Date: 01-21-2020 : 1960 Admission Diagnosis: Attending: MAXIMO KIM Current LOS: 5 Anticipated DC Date: Planned Disposition: Hospice Home Primary Insurance: WE[employer] MEDICARE ADV Discharge Planning Comments: LATE ENTRY- SUNDAY I MET WITH PATIENT AND HIS SISTER at bedside after explaining CM role and obtaining verbal consent. CM discussed availability / needs of home health, HOSPICE, REHAB and medical equipment. . SISTER IS HERE TO GET POA NOTORIZED. PATIENT WANTS [facility]. HOSPICE CALLED AND WAS COMMING TO SEE PATIENT IN THE AFTERNOON. Melt House Centrifugal Operator: Safia Robins DCP- Discharge Planning Updated by [id number]: Brittany Collins on 01/26/20 1:[address] Patient Name: SHRUTHI HERNÁNDEZ Admission Status: ER Accout number: [id number] Admission Date: 01-21-2020 : 1960 Admission Diagnosis: Attending: MAXIMO KIM Current LOS: 2 Anticipated DC Date: Planned Disposition: Primary Insurance: WE[employer] MEDICARE ADV Discharge Planning Comments: PATIENT AND FAMILY CONSIDERING [facility]. [place] HOSPICE MEETING WITH SISTER TODAY AT 2PM. DOCUMENTS FAXED TO [facility] AT [phone]. Melt House Centrifugal Operator: Safia Robins DCP- Discharge Planning Updated by [id number]: Sarah Waddell on 01/26/20 7:[address] SPOKE WITH TAMMY AT [facility] AND THEY ARE WORKING ON GETTING HIM SET UP FOR HOSPICE AT HOME. SHE WILL CALL ME BACK AFTER THEIR MORNING MEETING Coverage Notice Reviewer: [id number] - Sarah Waddell Notice Issued Date-Time: 01/27/2020 9:50 Notice Type: IM Discharge Notice Notice Delivered To: Family Member Relationship to Patient: Power of Government Auditor Black Belt Name: BRAVO OKEEFE Delivery Method: HAND - Hand Delivered Karissa Days: Prior Verbal Notification: Recipient Understood Notice: Yes Recipient Signature: Yes Med Rec Note Co-signed by Attending: Coverage Notice Comment: Last DP export: 01/27/20 9:04 a Patient Name: SHRUTHI HERNÁNDEZ Page [id number] at 0728 All edits/amendments must be made on the electronic document DICTATION DATE: 01/28/20727 VOLCANOLOGY TEACHER: BRAXTON 01/28/20727 RPT#: [id number] DC DATE:01/27/20 STATUS: DIS IN [facility] [address] [place] [address] END OF REPORT
== END 2020-01-27 16:40 | disposition home health service (06) | DRG 196 ==
LOC: D.ER 19:05 → D.MS 21:54
PROVIDERS: Family Medicine; Internal Medicine Pulmonary Disease; ADMIT Internal Medicine Nephrology; ATTEND Internal Medicine Nephrology
PROC: 5A09557 Assistance with Respiratory Ventilation, Greater than 96 Consecutive Hours, Continuous Positive Airway Pressure (ICD-10-PCS; principal; 2020-01-23)
DX: J84.10 Pulmonary fibrosis, unspecified (principal); J96.21 Acute and chronic respiratory failure with hypoxia; I50.33 Acute on chronic diastolic (congestive) heart failure; E44.0 Moderate protein-calorie malnutrition; J20.9 Acute bronchitis, unspecified; D64.9 Anemia, unspecified; Z68.20 Body mass index [BMI] 20.0-20.9, adult; F10.10 Alcohol abuse, uncomplicated; J43.9 Emphysema, unspecified; Z87.891 Personal history of nicotine dependence